=== PATIENT | male | born 1965 | race Caucasian/White ===

== ENCOUNTER 2016-06-02 11:22 | Emergency (ER) | payer BC ==
[~2016-06-02 11:22] MED LIST: ASPI81TA85 PO; VARE1TA PO
[2016-06-02] MEDS ORDERED: FAMOTIDINE 20 MG TAB As Ordered ONE (11:58)
[2016-06-02] MEDS ORDERED: diphenhydrAMINE INJ 50MG/ML VIAL (J1200) As Ordered ONE (11:58)
[2016-06-02] MEDS ORDERED: KETOROLAC 30 MG/ML VIAL (J1885) As Ordered ONE (11:59)
[2016-06-02] MEDS ORDERED: methylPREDNISolone INJ 125 MG/2 ML VIAL (J2930) As Ordered ONE (11:59)
[2016-06-02 12:21] LABS: BASO % 0.4 % (0.0-1.0); EOS # 0.2 K/mm3 (0.0-0.50); EOS % 2.8 % (0.0-3.0); LARGE UNSTAINED CELL # 0.2 K/mm3 (0.0-0.4); LYMPH # 0.9 K/mm3 (1.5-4.5); LYMPH % 12.3 % (24.0-44.0); MEAN CORPUSCULAR HEMOGLOBIN 33.3 pg (27.0-33.0); MEAN CORPUSCULAR HGB CONC 32.8 g/dl (32.0-36.5); MEAN CORPUSCULAR VOLUME 101.5 fl (80.0-96.0); MONO # 0.6 K/mm3 (0.0-0.8); MONO % 7.8 % (0.0-5.0); NEUTROPHILS # 5.4 K/mm3 (1.8-7.7); NEUTROPHILS % 73.7 % (36.0-66.0); PLATELET COUNT, AUTOMATED 290 k/mm3 (150-450); RED CELL DISTRIBUTION WIDTH 11.7 % (11.5-14.5); WHITE BLOOD COUNT 7.3 K/mm3 (4.0-10.0)
[2016-06-02 12:36] LABS: INR 0.96
[2016-06-02 12:51] LABS: ALBUMIN 3.7 GM/DL (3.2-5.2); ALBUMIN/GLOBULIN RATIO 1.09 (1.00-1.93); ALKALINE PHOSPHATASE 81 U/L (45-117); ALT/SGPT 25 U/L (12-78); ANION GAP 7 MEQ/L (8-16); AST/SGOT 17 U/L (15-37); BILIRUBIN,DIRECT 0.1 MG/DL (0.0-0.2); BILIRUBIN,TOTAL 0.3 MG/DL (0.2-1.0); BLOOD UREA NITROGEN 8 MG/DL (7-18); CALCIUM LEVEL 8.9 MG/DL (8.5-10.1); CARBON DIOXIDE LEVEL 26 MEQ/L (21-32); CHLORIDE LEVEL 108 MEQ/L (98-107); CREATININE FOR GFR 0.83 MG/DL (0.70-1.30); GLOMERULAR FILTRATION RATE > 60.0 (>56); GLUCOSE, FASTING 96 MG/DL (70-105); POTASSIUM SERUM 4.3 MEQ/L (3.5-5.1); SODIUM LEVEL 141 MEQ/L (136-145); TOTAL PROTEIN 7.1 GM/DL (6.4-8.2)
[2016-06-02 13:00] LABS: ERYTHROCYTE SEDIMENTATION RATE 10 mm/hr (0-20)
--- NOTE | 2016-06-02 13:55 | REP ---
ACUTE ABDOMINAL SERIES: 06/02/2016. Comparison: Chest x-ray 03/01/2011. Clinical history: Abdominal pain. Findings: PA chest: The lungs are well inflated and without infiltrate, effusion, atelectasis or mass. Heart, mediastinal and hilar contours are normal. Airway intact. There are degenerative changes in the spine and shoulders. Some soft tissue calcifications about the greater tuberosity on the left may reflect some calcific tendinopathy. No free air under the diaphragm. Flat upright abdomen: Mostly fluid-filled small bowel loops in the right upper quadrant and pelvis with some air in nondilated bowel loops in the left upper quadrant, a few these have air fluid levels and the pattern suggests some gastroenteritis or ileus. I see no obstruction, mass, free air or other acute finding. No abnormal soft tissue calcifications. There are degenerative changes in the lower lumbar spine and facets as well as at the hips. There is an injection granuloma overlying the left buttock and iliac wing. Impression: 1. Nonspecific gas pattern without obstruction, mass or free air. There are mostly fluid-filled small bowel loops with a few air-fluid levels but no dilatation. This suggests gastroenteritis or ileus. 2. No abnormal calcifications overlying the renal fossae or expected course of the ureters. 3. Degenerative changes lower lumbar spine and hips. 4. PA chest negative. Signed by Oscar Szymanski MD 06/02/2016 07:37 P
--- NOTE | 2016-06-02 14:08 | EDDOCDS ---
Physician Documentation [facility] Name: Kam Esteban Age: 50 yrs Sex: Male : 1965 Arrival Date: 06/02/2016 Time: 11:22 Bed TR7 Private MD: Sanjeev Chawla Disposition: 06/02/16 13:49 Discharged to Home/Self Care. Impression: Urticaria. - Condition is Stable. - Discharge Instructions: Hives. - Prescriptions for Benadryl 25 mg Oral Capsule - take 1 capsule by ORAL route every 6 hours As needed; 30 tablet. Pepcid 20 mg Oral Tablet - take 1 tablet by ORAL route every 12 hours for 10 days; 20 tablet. Ultram 50 mg Oral Tablet - take 1 tablet by ORAL route every 6 hours As needed MDD: 4 tabs; 12 tablet. Prednisone 20 mg Oral Tablet - take 2 tablet by ORAL route once daily for 5 days; 10 tablet. - Medication Reconciliation form. - Follow up: Emergency Department; When: As needed; Reason: Worsening of conditions. [facility]; When: 2 - 3 days; Reason: Wound/Symptom Recheck, Recheck today's complaints, Worsening of conditions, Continuance of care. - Problem is chronic. - Symptoms are unchanged. - Notes: Please follow up with the [facility] on Saturday and bring this paperwork with you. We would like an immediate Dermatology referral made for you. Historical: - Allergies: no known allergies; - Home Meds: 1. terbinafine HCl 250 mg oral tab 1 tab once daily 2. clotrimazole 1 % Topical lotn 2 times per day 3. triamcinolone acetonide 0.1 % Topical crea 2 times per day 4. Eucerin Topical lotn daily - PMHx: none; - PSHx: Appendectomy; left knee; - Social history: Smoking status: Patient uses tobacco products, heavy tobacco smoker. No barriers to communication noted, The patient speaks fluent Malay, Speaks appropriately for age. - Family history: Not pertinent. - : The pt / caregiver states he / she is not on anticoagulants. Home medication list is obtained from the patient. - Exposure Risk Screening:: None identified. Vital Signs: 06/02 11:23 BP 135 / 81; Pulse 71; Resp 16; Temp 95.9; Pulse Ox 99% ; Weight 79.38 kg / 175 lbs; elp Height 5 ft. 7 in. (170.18 cm); 13:54 BP 128 / 78; Pulse 72; Resp 18; Pulse Ox 98% on R/A; mk4 11:23 Body Mass Index 27.41 (79.38 kg, 170.18 cm) elp MDM: 11:34 IV Saline Lock ordered. cc10 11:34 Undress patient appropriately for examination ordered. cc10 11:35 Abdomen, Flat\E\Upright,PA Chest Ordered. EDMS 11:35 Basic Metabolic Profile Ordered. EDMS 11:35 CBC with Diff Ordered. EDMS 11:35 Lipase Ordered. EDMS 11:35 Liver Profile Ordered. EDMS 11:35 Partial Thromboplastin Time Ordered. EDMS 11:35 Prothrombin Time Profile\E\INR Ordered. EDMS 11:35 UA Ordered. EDMS 11:35 ESR Ordered. EDMS 11:36 CRP Ordered. EDMS 11:36 NOTHING BY MOUTH+DIET ordered. EDMS 11:36 -Blood Culture (Adults Only), peripheral from different site, or from device/port/PICC cc10 etc. if present ordered. 11:36 -Blood Culture Ordered. EDMS 11:37 Ammonia (Little Green Tube on Ice, Not Pea Green) Ordered. EDMS 11:41 -Blood Culture (Adults Only), peripheral from different site, or from device/port/PICC jml1 etc. if present complete. 11:42 BLOOD CULTURES Ordered. EDMS 11:48 Financial registration complete. mm15 11:53 Undo -Financial registration. mm15 11:55 Solu-MEDROL 125 mg IVP once ordered. cc10 11:55 diphenhydrAMINE 25 mg IVP once ordered. cc10 11:55 Famotidine 20 mg PO once ordered. cc10 11:55 ketorolac 30 mg IVP once ordered. cc10 12:36 Financial registration complete. mm15 12:44 [facility] Payment Agreement was scanned into [employer] and attached to record. mm15 13:13 Basic Metabolic Profile Reviewed. cc10 13:13 CBC with Diff Reviewed. cc10 13:13 CRP Reviewed. cc10 13:13 Lipase Reviewed. cc10 13:13 Liver Profile Reviewed. cc10 13:13 Partial Thromboplastin Time Reviewed. cc10 13:13 Prothrombin Time Profile\E\INR Reviewed. cc10 13:13 UA Reviewed. cc10 13:13 ESR Reviewed. cc10 13:13 Ammonia (Little Green Tube on Ice, Not Pea Green) Reviewed. cc10 Administered Medications: 12:08 Drug: ketorolac 30 mg [ketorolac 30 mg/mL (1 mL) injection solution (1 mL)] Route: IVP; dls Site: right antecubital; 12:09 Drug: Solu-MEDROL 125 mg [Solu-Medrol 500 mg intravenous solution (125 mg)] Route: IVP; dls Site: right antecubital; 12:09 Drug: diphenhydrAMINE 25 mg [diphenhydramine 50 mg/mL injection solution (0.5 mL)] dls Route: IVP; Site: right antecubital; 12:09 Drug: Famotidine 20 mg [famotidine 20 mg tablet (1 tabs)] Route: PO; dls Signatures: Dispatcher [employer] Tyler Hendrickson RN RN mlb1 Maciel Hong jml1 Sarahi Estrada mm15 Aleksandra Travis RN RN mk4 Javi Lopez, PA-C PA-C cc10 Rosmery Delvalle RN dls The chart was reviewed and I authenticate all verbal orders and agree with the evaluation and treatment provided.Attachments: 12:44 [facility] Payment Agreement mm15 MTDD
--- NOTE | 2016-06-02 14:08 | EDDOCDS ---
Nurse's Notes [facility] Name: Kam Esteban Age: 50 yrs Sex: Male : 1965 Arrival Date: 06/02/2016 Time: 11:22 Bed TR7 Private MD: Sanjeev Chawla Diagnosis: Urticaria Presentation: 06/02 11:24 Presenting complaint: Patient states: Right side abdominal pain radiating to back began mlb1 six months ago, bilateral hand and foot redness and numbness began two months ago. Adult Sepsis Screening: The patient does not have new or worsening altered mentation. Patient's respiratory rate is less than 22. Systolic blood pressure is greater than 100. Patient has a qSOFA score of 0- Negative Sepsis Screen. Suicide/Homicide risk assessment- the patient denies having any suicidal and/or homicidal ideations and does not present with any other emotional, behavioral or mental health complaints. Status: Patient is not a rn support services or dependent. Transition of care: patient was not received from another setting of care. 11:24 Acuity: REBA Level 3 mlb1 11:24 Method Of Arrival: Walkin/Carried/Asstd mlb1 Triage Assessment: 11:28 General: Appears in no apparent distress, Behavior is appropriate for age, cooperative. mlb1 Pain: Location: right upper quadrant and right lower quadrant Pain currently is 5 out of 10 on a pain scale. Pain radiates to right flank and right low back. Pt Declines HIV testing. Musculoskeletal: Reports tingling and rash to hands and feet. Historical: - Allergies: no known allergies; - Home Meds: 1. terbinafine HCl 250 mg oral tab 1 tab once daily 2. clotrimazole 1 % Topical lotn 2 times per day 3. triamcinolone acetonide 0.1 % Topical crea 2 times per day 4. Eucerin Topical lotn daily - PMHx: none; - PSHx: Appendectomy; left knee; - Social history: Smoking status: Patient uses tobacco products, heavy tobacco smoker. No barriers to communication noted, The patient speaks fluent Albanian, Speaks appropriately for age. - Family history: Not pertinent. - : The pt / caregiver states he / she is not on anticoagulants. Home medication list is obtained from the patient. - Exposure Risk Screening:: None identified. Screenin:06 Screening information is obtained from the patient. Fall risk: No risks identified. mk4 Assistance ADL's: requires no assistance with activities of daily living. Abuse/DV Screen: The patient / caregiver reports he/she is: not in a situation that causes fear, pain or injury. Nutritional screening: No deficits noted. Advance Directives: Currently, there is no health care proxy. There is no active DNR order. There is no living will. There is no Power of [employer]. Advance directive information has not previously been placed in an [facility] medical record. Further advance directive information is declined. home support is adequate. Assessment: 12:01 General: Appears uncomfortable. Pain: Location: right lower quadrant and right upper mk4 quadrant. Neurological: Level of Consciousness is awake, alert. Respiratory: Airway is patent Respiratory effort is even, unlabored, Respiratory pattern is regular. Derm: Rash noted that is over entire body. 13:00 General: Appears in no apparent distress. Derm: Rash noted that is over entire body mk4 unchanged however itching has improved. 13:54 General: Appears uncomfortable. Pain: Location: all over his body. Neurological: Level mk4 of Consciousness is awake, alert. Respiratory: Airway is patent Respiratory effort is even, unlabored, Respiratory pattern is regular. Derm: Skin is intact, Rash noted that is continues to have rash over entire body , pt and so irritated with staff that we do not have an answer to why he has the rash, pt requesting to have a cream for his skin pt was prescribed steroid cream but has not used it because it "doesn't work". Vital Signs: 11:23 BP 135 / 81; Pulse 71; Resp 16; Temp 95.9; Pulse Ox 99% ; Weight 79.38 kg; Height 5 ft. elp 7 in. (170.18 cm); 13:54 BP 128 / 78; Pulse 72; Resp 18; Pulse Ox 98% on R/A; mk4 11:23 Body Mass Index 27.41 (79.38 kg, 170.18 cm) [facility] Vitals: 11:23 Log In Time: June 02, 2016 at 11:21. [facility] ED Course: 11:23 Patient visited by Asya Ballard PCA. elp 11:23 Sanjeev Chawla DO is Private Physician. elp 11:23 Patient moved to Waiting elp 11:23 Patient moved to Pre RCE elp 11:24 Patient visited by Asya Ballard PCA. elp 11:24 Patient visited by Tyler Landa RN. mlb1 11:26 Triage Initiated mlb1 11:28 Patient visited by Tyler Landa, KOREY. mlb1 11:28 Patient moved to Triage 1 mlb1 11:29 Javi Lopez [facility]-C [facility] cc10 11:29 Yamini Ocampo MD is Attending Physician. cc10 11:29 Patient visited by Javi Lopez PA-C. cc10 11:29 Patient visited by Javi Lopez PA-C. cc10 11:36 Patient moved to I1 / M1 ck1 11:38 UA Sent. ck1 12:00 BLOOD CULTURES Sent. mk4 12:00 Ammonia (Little Green Tube on Ice, Not Pea Green) Sent. mk4 12:00 Basic Metabolic Profile Sent. mk4 12:00 CBC with Diff Sent. mk4 12:00 Lipase Sent. mk4 12:00 Liver Profile Sent. mk4 12:00 Partial Thromboplastin Time Sent. mk4 12:00 Prothrombin Time Profile\\E\\INR Sent. mk4 12:00 ESR Sent. mk4 12:00 CRP Sent. mk4 12:00 Inserted saline lock: 20 gauge in right antecubital area and blood collected. No mk4 procedures done that require assistance. 12:18 Patient visited by Aleksandra Travis RN. mk4 12:44 [facility] Payment Agreement was scanned into [employer] and attached to record. mm15 13:26 Patient visited by Rosmery Delvalle RN. dls 13:48 [facility] is Referral Physician. cc10 14:01 Patient moved to TR1 jml1 14:06 The patient / caregiver is instructed regarding the plan of care and ED course. mk4 14:07 Patient moved to PR1 / 25 rs3 14:07 Patient moved to TR7 mk4 Administered Medications: 12:08 Drug: ketorolac 30 mg [ketorolac 30 mg/mL (1 mL) injection solution (1 mL)] Route: IVP; dls Site: right antecubital; 12:09 Drug: Solu-MEDROL 125 mg [Solu-Medrol 500 mg intravenous solution (125 mg)] Route: IVP; dls Site: right antecubital; 12:09 Drug: diphenhydrAMINE 25 mg [diphenhydramine 50 mg/mL injection solution (0.5 mL)] dls Route: IVP; Site: right antecubital; 12:09 Drug: Famotidine 20 mg [famotidine 20 mg tablet (1 tabs)] Route: PO; dls Order Results: Lab Order: Basic Metabolic Profile; SPEC'M 06/02/16 11:57 Test: GLUCOSE, FASTING; Value: 96; Range: 70-105; Units: MG/DL; Status: F Test: BLOOD UREA NITROGEN; Value: 8; Range: 7-18; Units: MG/DL; Status: F Test: CREATININE FOR GFR; Value: 0.83; Range: 0.70-1.30; Units: MG/DL; Status: F Test: GLOMERULAR FILTRATION RATE; Value: > 60.0; Range: >56; Status: F Test: SODIUM LEVEL; Value: 141; Range: 136-145; Units: MEQ/L; Status: F Test: POTASSIUM SERUM; Value: 4.3; Range: 3.5-5.1; Units: MEQ/L; Status: F Test: CHLORIDE LEVEL; Value: 108; Range: 98-107; Abnormal: Above high normal; Units: MEQ/L; Status: F Test: CARBON DIOXIDE LEVEL; Value: 26; Range: 21-32; Units: MEQ/L; Status: F Test: ANION GAP; Value: 7; Range: 8-16; Abnormal: Below low normal; Units: MEQ/L; Status: F Test: CALCIUM LEVEL; Value: 8.9; Range: 8.5-10.1; Units: MG/DL; Status: F Test Note: ; Units are mL/min/1.73 m2 Chronic Kidney Disease Staging per NKF: Stage I & II GFR >=60 Normal to Mildly Decreased Stage III GFR 30-59 Moderately Decreased Stage IV GFR 15-29 Severely Decreased Stage V GFR <15 Very Little GFR Left ESRD GFR <15 on EVP STRATEGY Lab Order: CBC with Diff; SPEC'M 06/02/16 11:57 Test: WHITE BLOOD COUNT; Value: 7.3; Range: 4.0-10.0; Units: K/mm3; Status: F Test: RED BLOOD COUNT; Value: 4.58; Range: 4.30-6.10; Units: M/mm3; Status: F Test: HEMOGLOBIN; Value: 15.3; Range: 14.0-18.0; Units: g/dl; Status: F Test: HEMATOCRIT; Value: 46.5; Range: 42.0-52.0; Units: %; Status: F Test: MEAN CORPUSCULAR VOLUME; Value: 101.5; Range: 80.0-96.0; Abnormal: Above high normal; Units: fl; Status: F Test: MEAN CORPUSCULAR HEMOGLOBIN; Value: 33.3; Range: 27.0-33.0; Abnormal: Above high normal; Units: pg; Status: F Test: MEAN CORPUSCULAR HGB CONC; Value: 32.8; Range: 32.0-36.5; Units: g/dl; Status: F Test: RED CELL DISTRIBUTION WIDTH; Value: 11.7; Range: 11.5-14.5; Units: %; Status: F Test: PLATELET COUNT, AUTOMATED; Value: 290; Range: 150-450; Units: k/mm3; Status: F Test: NEUTROPHILS %; Value: 73.7; Range: 36.0-66.0; Abnormal: Above high normal; Units: %; Status: F Test: LYMPH %; Value: 12.3; Range: 24.0-44.0; Abnormal: Below low normal; Units: %; Status: F Test: MONO %; Value: 7.8; Range: 0.0-5.0; Abnormal: Above high normal; Units: %; Status: F Test: EOS %; Value: 2.8; Range: 0.0-3.0; Units: %; Status: F Test: BASO %; Value: 0.4; Range: 0.0-1.0; Units: %; Status: F Test: LARGE UNSTAINED CELL %; Value: 3.0; Range: 0.0-4.0; Units: %; Status: F Test: NEUTROPHILS #; Value: 5.4; Range: 1.8-7.7; Units: K/mm3; Status: F Test: LYMPH #; Value: 0.9; Range: 1.5-4.5; Abnormal: Below low normal; Units: K/mm3; Status: F Test: MONO #; Value: 0.6; Range: 0.0-0.8; Units: K/mm3; Status: F Test: EOS #; Value: 0.2; Range: 0.0-0.50; Units: K/mm3; Status: F Test: BASO #; Value: 0.0; Range: 0.0-0.2; Units: K/mm3; Status: F Test: LARGE UNSTAINED CELL #; Value: 0.2; Range: 0.0-0.4; Units: K/mm3; Status: F Lab Order: Lipase; [facility]06/02/16 11:57 Test: LIPASE; Value: 193; Range: 73-393; Units: U/L; Status: F Lab Order: Liver Profile; [facility]06/02/16 11:57 Test: AST/SGOT; Value: 17; Range: 15-37; Units: U/L; Status: F Test: ALT/SGPT; Value: 25; Range: 12-78; Units: U/L; Status: F Test: ALKALINE PHOSPHATASE; Value: 81; Range: 45-117; Units: U/L; Status: F Test: BILIRUBIN,TOTAL; Value: 0.3; Range: 0.2-1.0; Units: MG/DL; Status: F Test: BILIRUBIN,DIRECT; Value: 0.1; Range: 0.0-0.2; Units: MG/DL; Status: F Test: TOTAL PROTEIN; Value: 7.1; Range: 6.4-8.2; Units: GM/DL; Status: F Test: ALBUMIN; Value: 3.7; Range: 3.2-5.2; Units: GM/DL; Status: F Test: ALBUMIN/GLOBULIN RATIO; Value: 1.09; Range: 1.00-1.93; Status: F Lab Order: Partial Thromboplastin Time; [facility]06/02/16 11:57 Test: PARTIAL THROMBOPLASTIN TIME; Value: 28.7; Range: 26.6-37.1; Units: SECONDS; Status: F Lab Order: Prothrombin Time Profile\\E\\INR; 06/02/16 11:57 Test: PROTHROMBIN TIME; Value: 12.9; Range: 12.3-14.5; Units: SECONDS; Status: F Test: INR; Value: 0.96; Status: F Test Note: ; THERAPUTIC HUMAN INR VALUES INDICATIONS NORMAL RANGES PROPHYLAXIS/TREATMENT OF: VENOUS THROMBOSIS 2.0-3.0 PULMONARY EMBOLISM 2.0-3.0 PREVENTION OF SYSTEMIC EMBOLISM FROM: TISSUE HEART VALVES 2.0-3.0 ACUTE MYOCARDIAL INFARCTION 2.0-3.0 VALVULAR HEART DISEASE 2.0-3.0 ATRIAL FIBRILLATION 2.0-3.0 MECHANICAL VALVES(HIGH RISK) 2.5-3.5 RECURRENT MYOCARDIAL INFARCTION 2.5-3.5 Lab Order: UA; SPEC'M 06/02/16 11:37 Test: APPEARANCE, URINE; Value: CLEAR; Range: CLEAR; Status: F Test: COLOR, URINE; Value: YELLOW; Range: YELLOW; Status: F Test: PH,URINE; Value: 5.0; Range: 5.0-9.0; Units: UNITS; Status: F Test: SPECIFIC GRAVITY URINE AUTO; Value: 1.009; Range: 1.002-1.035; Status: F Test: PROTEIN, URINE AUTO; Value: NEGATIVE; Range: NEGATIVE; Units: mg/dL; Status: F Test: GLUCOSE, URINE (UA) AUTO; Value: NEGATIVE; Range: NEGATIVE; Units: mg/dL; Status: F Test: KETONE, URINE AUTO; Value: NEGATIVE; Range: NEGATIVE; Units: mg/dL; Status: F Test: UROBILINOGEN, URINE AUTO; Value: 0.2; Range: 0.0-2.0; Units: mg/dL; Status: F Test: BILIRUBIN, URINE AUTO; Value: NEGATIVE; Range: NEGATIVE; Status: F Test: NITRITE, URINE AUTO; Value: NEGATIVE; Range: NEGATIVE; Status: F Test: LEUKOCYTE ESTERASE, URINE AUTO; Value: NEGATIVE; Range: NEGATIVE; Status: F Test: BLOOD, URINE BLOOD; Value: NEGATIVE; Range: NEGATIVE; Status: F Test: WBC, URINE AUTO; Value: 0; Range: 0-3; Units: /HPF; Status: F Test: RBC, URINE AUTO; Value: 1; Range: 0-3; Units: /HPF; Status: F Test: BACTERIA, URINE AUTO; Value: NEGATIVE; Range: NEGATIVE; Status: F Test: SQUAMOUS EPITHELIAL CELL UR AU; Value: 0; Range: 0-6; Units: /HPF; Status: F Test: MUCUS, URINE; Value: SMALL; Range: NEGATIVE; Status: F Test: HYALINE CAST, URINE AUTO; Value: 0; Range: 0-1; Units: /LPF; Status: F Lab Order: ESR; SPEC'M 06/02/16 11:57 Test: ERYTHROCYTE SEDIMENTATION RATE; Value: 10; Range: 0-20; Units: mm/hr; Status: F Lab Order: CRP; SPEC'M 06/02/16 11:57 Test: C REACTIVE PROTEIN QUANTITATIV; Value: 0.74; Range: 0.00-0.30; Abnormal: Above high normal; Units: MG/DL; Status: F Lab Order: Ammonia (Little Green Tube on Ice, Not Pea Green); SPEC'M 06/02/16 11:57 Test: AMMONIA; Value: 21; Range: <32; Units: uMOL/L; Status: F Outcome: 12:00 Discharge Assessment: Patient awake, alert and oriented x 3. No cognitive and/or mk4 functional deficits noted. Patient verbalized understanding of disposition instructions. Patient awake and alert. awake. Discharge Assessment: patient administered narcotics - no. The following High Risk Discharge criteria are identified: None. Condition: good Condition: stable. No special radiology studies were completed. Property sent home with patient. 13:49 Discharge ordered by Provider. cc10 14:08 Patient left the ED. mk4 Signatures: Rosmery Delvalle, RN RN dls Tyler Landa RN RN mlb1 Daisy AmayaRN RN ck1 Carlee SandersRN RN rs3 Maciel Hong jml1 Sarahi Estrada mm15 Asya Ballard, VENEER DRIER [place] D[place]ER [place] Aleksandra Travis RN RN mk4 Javi Lopez, PA-C PA-C cc10 MTDD
--- NOTE | 2016-06-04 15:08 | EDDOCDS ---
Physician Documentation [facility] Name: Kam Esteban Age: 50 yrs Sex: Male : 1965 Arrival Date: 06/02/2016 Time: 11:22 Bed TR7 Private MD: Sanjeev Chawla Disposition: 06/02/16 13:49 Discharged to Home/Self Care. Impression: Urticaria. - Condition is Stable. - Discharge Instructions: Hives. - Prescriptions for Benadryl 25 mg Oral Capsule - take 1 capsule by ORAL route every 6 hours As needed; 30 tablet. Pepcid 20 mg Oral Tablet - take 1 tablet by ORAL route every 12 hours for 10 days; 20 tablet. Ultram 50 mg Oral Tablet - take 1 tablet by ORAL route every 6 hours As needed MDD: 4 tabs; 12 tablet. Prednisone 20 mg Oral Tablet - take 2 tablet by ORAL route once daily for 5 days; 10 tablet. - Medication Reconciliation form. - Follow up: Emergency Department; When: As needed; Reason: Worsening of conditions. [facility]; When: 2 - 3 days; Reason: Wound/Symptom Recheck, Recheck today's complaints, Worsening of conditions, Continuance of care. - Problem is chronic. - Symptoms are unchanged. - Notes: Please follow up with the [facility] on Saturday and bring this paperwork with you. We would like an immediate Dermatology referral made for you. Historical: - Allergies: no known allergies; - Home Meds: 1. terbinafine HCl 250 mg oral tab 1 tab once daily 2. clotrimazole 1 % Topical lotn 2 times per day 3. triamcinolone acetonide 0.1 % Topical crea 2 times per day 4. Eucerin Topical lotn daily - PMHx: none; - PSHx: Appendectomy; left knee; - Social history: Smoking status: Patient uses tobacco products, heavy tobacco smoker. No barriers to communication noted, The patient speaks fluent Turkmen, Speaks appropriately for age. - Family history: Not pertinent. - : The pt / caregiver states he / she is not on anticoagulants. Home medication list is obtained from the patient. - Exposure Risk Screening:: None identified. Vital Signs: 06/02 11:23 BP 135 / 81; Pulse 71; Resp 16; Temp 95.9; Pulse Ox 99% ; Weight 79.38 kg / 175 lbs; elp Height 5 ft. 7 in. (170.18 cm); 13:54 BP 128 / 78; Pulse 72; Resp 18; Pulse Ox 98% on R/A; mk4 11:23 Body Mass Index 27.41 (79.38 kg, 170.18 cm) elp MDM: 11:34 IV Saline Lock ordered. cc10 11:34 Undress patient appropriately for examination ordered. cc10 11:35 Abdomen, Flat\E\Upright,PA Chest Ordered. EDMS 11:35 Basic Metabolic Profile Ordered. EDMS 11:35 CBC with Diff Ordered. EDMS 11:35 Lipase Ordered. EDMS 11:35 Liver Profile Ordered. EDMS 11:35 Partial Thromboplastin Time Ordered. EDMS 11:35 Prothrombin Time Profile\E\INR Ordered. EDMS 11:35 UA Ordered. EDMS 11:35 ESR Ordered. EDMS 11:36 CRP Ordered. EDMS 11:36 NOTHING BY MOUTH+DIET ordered. EDMS 11:36 -Blood Culture (Adults Only), peripheral from different site, or from device/port/PICC cc10 etc. if present ordered. 11:36 -Blood Culture Ordered. EDMS 11:37 Ammonia (Little Green Tube on Ice, Not Pea Green) Ordered. EDMS 11:41 -Blood Culture (Adults Only), peripheral from different site, or from device/port/PICC jml1 etc. if present complete. 11:42 BLOOD CULTURES Ordered. EDMS 11:48 Financial registration complete. mm15 11:53 Undo -Financial registration. mm15 11:55 Solu-MEDROL 125 mg IVP once ordered. cc10 11:55 diphenhydrAMINE 25 mg IVP once ordered. cc10 11:55 Famotidine 20 mg PO once ordered. cc10 11:55 ketorolac 30 mg IVP once ordered. cc10 12:36 Financial registration complete. mm15 12:44 [facility] Payment Agreement was scanned into [employer] and attached to record. mm15 13:13 Basic Metabolic Profile Reviewed. cc10 13:13 CBC with Diff Reviewed. cc10 13:13 CRP Reviewed. cc10 13:13 Lipase Reviewed. cc10 13:13 Liver Profile Reviewed. cc10 13:13 Partial Thromboplastin Time Reviewed. cc10 13:13 Prothrombin Time Profile\E\INR Reviewed. cc10 13:13 UA Reviewed. cc10 13:13 ESR Reviewed. cc10 13:13 Ammonia (Little Green Tube on Ice, Not Pea Green) Reviewed. cc10 17:51 T-Sheet-- Draft Copy was scanned into [employer] and attached to record. klr Administered Medications: 12:08 Drug: ketorolac 30 mg [ketorolac 30 mg/mL (1 mL) injection solution (1 mL)] Route: IVP; dls Site: right antecubital; 12:09 Drug: Solu-MEDROL 125 mg [Solu-Medrol 500 mg intravenous solution (125 mg)] Route: IVP; dls Site: right antecubital; 12:09 Drug: diphenhydrAMINE 25 mg [diphenhydramine 50 mg/mL injection solution (0.5 mL)] dls Route: IVP; Site: right antecubital; 12:09 Drug: Famotidine 20 mg [famotidine 20 mg tablet (1 tabs)] Route: PO; dls Signatures: Dis[facility] Tyler Landa RN RN mlb1 Maciel Hong jml1 Sarahi Estrada mm15 Aleksandra Travis RN RN mk4 Javi Lopez, PAAbelino PA-Chance cc10 Kerline Pineda Debra RN dls The chart was reviewed and I authenticate all verbal orders and agree with the evaluation and treatment provided.Attachments: 12:44 [facility] Payment Agreement mm15 17:51 T-Sheet-- Draft Copy klr Chart Complete MTDD
--- NOTE | 2016-06-04 15:08 | EDDOCDS ---
Physician Documentation [facility] Name: Kam Esteban Age: 50 yrs Sex: Male : 1965 Arrival Date: 06/02/2016 Time: 11:22 Bed TR7 Private MD: Sanjeev Chawla Disposition: 06/02/16 13:49 Discharged to Home/Self Care. Impression: Urticaria. - Condition is Stable. - Discharge Instructions: Hives. - Prescriptions for Benadryl 25 mg Oral Capsule - take 1 capsule by ORAL route every 6 hours As needed; 30 tablet. Pepcid 20 mg Oral Tablet - take 1 tablet by ORAL route every 12 hours for 10 days; 20 tablet. Ultram 50 mg Oral Tablet - take 1 tablet by ORAL route every 6 hours As needed MDD: 4 tabs; 12 tablet. Prednisone 20 mg Oral Tablet - take 2 tablet by ORAL route once daily for 5 days; 10 tablet. - Medication Reconciliation form. - Follow up: Emergency Department; When: As needed; Reason: Worsening of conditions. [facility]; When: 2 - 3 days; Reason: Wound/Symptom Recheck, Recheck today's complaints, Worsening of conditions, Continuance of care. - Problem is chronic. - Symptoms are unchanged. - Notes: Please follow up with the [facility] on Saturday and bring this paperwork with you. We would like an immediate Dermatology referral made for you. Historical: - Allergies: no known allergies; - Home Meds: 1. terbinafine HCl 250 mg oral tab 1 tab once daily 2. clotrimazole 1 % Topical lotn 2 times per day 3. triamcinolone acetonide 0.1 % Topical crea 2 times per day 4. Eucerin Topical lotn daily - PMHx: none; - PSHx: Appendectomy; left knee; - Social history: Smoking status: Patient uses tobacco products, heavy tobacco smoker. No barriers to communication noted, The patient speaks fluent Italian, Speaks appropriately for age. - Family history: Not pertinent. - : The pt / caregiver states he / she is not on anticoagulants. Home medication list is obtained from the patient. - Exposure Risk Screening:: None identified. Vital Signs: 06/02 11:23 BP 135 / 81; Pulse 71; Resp 16; Temp 95.9; Pulse Ox 99% ; Weight 79.38 kg / 175 lbs; elp Height 5 ft. 7 in. (170.18 cm); 13:54 BP 128 / 78; Pulse 72; Resp 18; Pulse Ox 98% on R/A; mk4 11:23 Body Mass Index 27.41 (79.38 kg, 170.18 cm) elp MDM: 11:34 IV Saline Lock ordered. cc10 11:34 Undress patient appropriately for examination ordered. cc10 11:35 Abdomen, Flat\E\Upright,PA Chest Ordered. EDMS 11:35 Basic Metabolic Profile Ordered. EDMS 11:35 CBC with Diff Ordered. EDMS 11:35 Lipase Ordered. EDMS 11:35 Liver Profile Ordered. EDMS 11:35 Partial Thromboplastin Time Ordered. EDMS 11:35 Prothrombin Time Profile\E\INR Ordered. EDMS 11:35 UA Ordered. EDMS 11:35 ESR Ordered. EDMS 11:36 CRP Ordered. EDMS 11:36 NOTHING BY MOUTH+DIET ordered. EDMS 11:36 -Blood Culture (Adults Only), peripheral from different site, or from device/port/PICC cc10 etc. if present ordered. 11:36 -Blood Culture Ordered. EDMS 11:37 Ammonia (Little Green Tube on Ice, Not Pea Green) Ordered. EDMS 11:41 -Blood Culture (Adults Only), peripheral from different site, or from device/port/PICC jml1 etc. if present complete. 11:42 BLOOD CULTURES Ordered. EDMS 11:48 Financial registration complete. mm15 11:53 Undo -Financial registration. mm15 11:55 Solu-MEDROL 125 mg IVP once ordered. cc10 11:55 diphenhydrAMINE 25 mg IVP once ordered. cc10 11:55 Famotidine 20 mg PO once ordered. cc10 11:55 ketorolac 30 mg IVP once ordered. cc10 12:36 Financial registration complete. mm15 12:44 [facility] Payment Agreement was scanned into [employer] and attached to record. mm15 13:13 Basic Metabolic Profile Reviewed. cc10 13:13 CBC with Diff Reviewed. cc10 13:13 CRP Reviewed. cc10 13:13 Lipase Reviewed. cc10 13:13 Liver Profile Reviewed. cc10 13:13 Partial Thromboplastin Time Reviewed. cc10 13:13 Prothrombin Time Profile\E\INR Reviewed. cc10 13:13 UA Reviewed. cc10 13:13 ESR Reviewed. cc10 13:13 Ammonia (Little Green Tube on Ice, Not Pea Green) Reviewed. cc10 17:51 T-Sheet-- Draft Copy was scanned into [employer] and attached to record. klr Administered Medications: 12:08 Drug: ketorolac 30 mg [ketorolac 30 mg/mL (1 mL) injection solution (1 mL)] Route: IVP; dls Site: right antecubital; 12:09 Drug: Solu-MEDROL 125 mg [Solu-Medrol 500 mg intravenous solution (125 mg)] Route: IVP; dls Site: right antecubital; 12:09 Drug: diphenhydrAMINE 25 mg [diphenhydramine 50 mg/mL injection solution (0.5 mL)] dls Route: IVP; Site: right antecubital; 12:09 Drug: Famotidine 20 mg [famotidine 20 mg tablet (1 tabs)] Route: PO; dls Signatures: Dispatcher [facility] Tyler Landa RN RN mlb1 Maciel Hong jml1 Sarahi Estrada mm15 Aleksandra Travis RN RN mk4 Javi Lopez, PAAbelino PA-Chance cc10 Kerline Pineda Debra RN dls The chart was reviewed and I authenticate all verbal orders and agree with the evaluation and treatment provided.Attachments: 12:44 [facility] Payment Agreement mm15 17:51 T-Sheet-- Draft Copy klr Chart Complete MTDD
--- NOTE | 2016-06-04 15:09 | EDDOCDS ---
Nurse's Notes [facility] Name: Kam Esteban Age: 50 yrs Sex: Male : 1965 Arrival Date: 06/02/2016 Time: 11:22 Bed TR7 Private MD: Sanjeev Chawla Diagnosis: Urticaria Presentation: 06/02 11:24 Presenting complaint: Patient states: Right side abdominal pain radiating to back began mlb1 six months ago, bilateral hand and foot redness and numbness began two months ago. Adult Sepsis Screening: The patient does not have new or worsening altered mentation. Patient's respiratory rate is less than 22. Systolic blood pressure is greater than 100. Patient has a qSOFA score of 0- Negative Sepsis Screen. Suicide/Homicide risk assessment- the patient denies having any suicidal and/or homicidal ideations and does not present with any other emotional, behavioral or mental health complaints. 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 Transition of care: patient was not received from another setting of care. 11:24 Acuity: REBA Level 3 mlb1 11:24 Method Of Arrival: Walkin/Carried/Asstd mlb1 Triage Assessment: 11:28 General: Appears in no apparent distress, Behavior is appropriate for age, cooperative. mlb1 Pain: Location: right upper quadrant and right lower quadrant Pain currently is 5 out of 10 on a pain scale. Pain radiates to right flank and right low back. Pt Declines HIV testing. Musculoskeletal: Reports tingling and rash to hands and feet. Historical: - Allergies: no known allergies; - Home Meds: 1. terbinafine HCl 250 mg oral tab 1 tab once daily 2. clotrimazole 1 % Topical lotn 2 times per day 3. triamcinolone acetonide 0.1 % Topical crea 2 times per day 4. Eucerin Topical lotn daily - PMHx: none; - PSHx: Appendectomy; left knee; - Social history: Smoking status: Patient uses tobacco products, heavy tobacco smoker. No barriers to communication noted, The patient speaks fluent Macedonian, Speaks appropriately for age. - Family history: Not pertinent. - : The pt / caregiver states he / she is not on anticoagulants. Home medication list is obtained from the patient. - Exposure Risk Screening:: None identified. Screenin:06 Screening information is obtained from the patient. Fall risk: No risks identified. mk4 Assistance ADL's: requires no assistance with activities of daily living. Abuse/DV Screen: The patient / caregiver reports he/she is: not in a situation that causes fear, pain or injury. Nutritional screening: No deficits noted. Advance Directives: Currently, there is no health care proxy. There is no active DNR order. There is no living will. There is no Power of Hopper Attendant. Advance directive information has not previously been placed in an [facility] medical record. Further advance directive information is declined. home support is adequate. Assessment: 12:01 General: Appears uncomfortable. Pain: Location: right lower quadrant and right upper mk4 quadrant. Neurological: Level of Consciousness is awake, alert. Respiratory: Airway is patent Respiratory effort is even, unlabored, Respiratory pattern is regular. Derm: Rash noted that is over entire body. 13:00 General: Appears in no apparent distress. Derm: Rash noted that is over entire body mk4 unchanged however itching has improved. 13:54 General: Appears uncomfortable. Pain: Location: all over his body. Neurological: Level mk4 of Consciousness is awake, alert. Respiratory: Airway is patent Respiratory effort is even, unlabored, Respiratory pattern is regular. Derm: Skin is intact, Rash noted that is continues to have rash over entire body , pt and so irritated with staff that we do not have an answer to why he has the rash, pt requesting to have a cream for his skin pt was prescribed steroid cream but has not used it because it "doesn't work". Vital Signs: 11:23 BP 135 / 81; Pulse 71; Resp 16; Temp 95.9; Pulse Ox 99% ; Weight 79.38 kg; Height 5 ft. elp 7 in. (170.18 cm); 13:54 BP 128 / 78; Pulse 72; Resp 18; Pulse Ox 98% on R/A; mk4 11:23 Body Mass Index 27.41 (79.38 kg, 170.18 cm) [facility] Vitals: 11:23 Log In Time: June 02, 2016 at 11:[address]. [facility] ED Course: 11:23 Patient visited by Asya Ballard PCA. elp 11:23 Sanjeev Chawla DO is Private Physician. elp 11:23 Patient moved to Waiting elp 11:23 Patient moved to Pre RCE elp 11:24 Patient visited by Asya Ballard PCA. elp 11:24 Patient visited by Tyler Landa, KOREY. mlb1 11:26 Triage Initiated mlb1 11:28 Patient visited by Tyler Landa, KOREY. mlb1 11:28 Patient moved to Triage 1 mlb1 11:29 [facility] cc[facility] 11:29 Yamini Ocampo MD is Attending Physician. cc10 11:29 Patient visited by Javi Lopez PA-C. cc10 11:29 Patient visited by Javi Lopez PA-C. cc10 11:36 Patient moved to I1 / M1 ck1 11:38 UA Sent. ck1 12:00 BLOOD CULTURES Sent. mk4 12:00 Ammonia (Little [place] Tube on Ice, Not Pea Green) Sent. mk4 12:00 Basic Metabolic Profile Sent. mk4 12:00 CBC with Diff Sent. mk4 12:00 Lipase Sent. mk4 12:00 Liver Profile Sent. mk4 12:00 Partial Thromboplastin Time Sent. mk4 12:00 Prothrombin Time Profile\\E\\INR Sent. mk4 12:00 ESR Sent. mk4 12:00 CRP Sent. mk4 12:00 Inserted saline lock: 20 gauge in right antecubital area and blood collected. No mk4 procedures done that require assistance. 12:18 Patient visited by Aleksandra Travis RN. mk4 12:44 [facility] Payment Agreement was scanned into [employer] and attached to record. mm15 13:26 Patient visited by Rosmery Delvalle RN. dls 13:48 [facility] is Referral Physician. cc10 14:01 Patient moved to TR1 jml1 14:06 The patient / caregiver is instructed regarding the plan of care and ED course. mk4 14:07 Patient moved to PR1 / 25 rs3 14:07 Patient moved to TR7 mk4 14:15 Abdomen, Flat\\E\\Upright,PA Chest Returned. EDMS 17:51 T-Sheet-- Draft Copy was scanned into [employer] and attached to record. klr Administered Medications: 12:08 Drug: ketorolac 30 mg [ketorolac 30 mg/mL (1 mL) injection solution (1 mL)] Route: IVP; dls Site: right antecubital; 12:09 Drug: Solu-MEDROL 125 mg [Solu-Medrol 500 mg intravenous solution (125 mg)] Route: IVP; dls Site: right antecubital; 12:09 Drug: diphenhydrAMINE 25 mg [diphenhydramine 50 mg/mL injection solution (0.5 mL)] dls Route: IVP; Site: right antecubital; 12:09 Drug: Famotidine 20 mg [famotidine 20 mg tablet (1 tabs)] Route: PO; dls Order Results: Lab Order: Basic Metabolic Profile; SPEC'M 06/02/16 11:57 Test: GLUCOSE, FASTING; Value: 96; Range: 70-105; Units: MG/DL; Status: F Test: BLOOD UREA NITROGEN; Value: 8; Range: 7-18; Units: MG/DL; Status: F Test: CREATININE FOR GFR; Value: 0.83; Range: 0.70-1.30; Units: MG/DL; Status: F Test: GLOMERULAR FILTRATION RATE; Value: > 60.0; Range: >56; Status: F Test: SODIUM LEVEL; Value: 141; Range: 136-145; Units: MEQ/L; Status: F Test: POTASSIUM SERUM; Value: 4.3; Range: 3.5-5.1; Units: MEQ/L; Status: F Test: CHLORIDE LEVEL; Value: 108; Range: 98-107; Abnormal: Above high normal; Units: MEQ/L; Status: F Test: CARBON DIOXIDE LEVEL; Value: 26; Range: 21-32; Units: MEQ/L; Status: F Test: ANION GAP; Value: 7; Range: 8-16; Abnormal: Below low normal; Units: MEQ/L; Status: F Test: CALCIUM LEVEL; Value: 8.9; Range: 8.5-10.1; Units: MG/DL; Status: F Test Note: ; Units are mL/min/1.73 m2 Chronic Kidney Disease Staging per NKF: Stage I & II GFR >=60 Normal to Mildly Decreased Stage III GFR 30-59 Moderately Decreased Stage IV GFR 15-29 Severely Decreased Stage V GFR <15 Very Little GFR Left ESRD GFR <15 on FLEXOGRAPHIC PRESS PLATE SETTER Lab Order: CBC with Diff; SPEC'M 02/11/17 11:57 Test: WHITE BLOOD COUNT; Value: 7.3; Range: 4.0-10.0; Units: K/mm3; Status: F Test: RED BLOOD COUNT; Value: 4.58; Range: 4.30-6.10; Units: M/mm3; Status: F Test: HEMOGLOBIN; Value: 15.3; Range: 14.0-18.0; Units: g/dl; Status: F Test: HEMATOCRIT; Value: 46.5; Range: 42.0-52.0; Units: %; Status: F Test: MEAN CORPUSCULAR VOLUME; Value: 101.5; Range: 80.0-96.0; Abnormal: Above high normal; Units: fl; Status: F Test: MEAN CORPUSCULAR HEMOGLOBIN; Value: 33.3; Range: 27.0-33.0; Abnormal: Above high normal; Units: pg; Status: F Test: MEAN CORPUSCULAR HGB CONC; Value: 32.8; Range: 32.0-36.5; Units: g/dl; Status: F Test: RED CELL DISTRIBUTION WIDTH; Value: 11.7; Range: 11.5-14.5; Units: %; Status: F Test: PLATELET COUNT, AUTOMATED; Value: 290; Range: 150-450; Units: k/mm3; Status: F Test: NEUTROPHILS %; Value: 73.7; Range: 36.0-66.0; Abnormal: Above high normal; Units: %; Status: F Test: LYMPH %; Value: 12.3; Range: 24.0-44.0; Abnormal: Below low normal; Units: %; Status: F Test: MONO %; Value: 7.8; Range: 0.0-5.0; Abnormal: Above high normal; Units: %; Status: F Test: EOS %; Value: 2.8; Range: 0.0-3.0; Units: %; Status: F Test: BASO %; Value: 0.4; Range: 0.0-1.0; Units: %; Status: F Test: LARGE UNSTAINED CELL %; Value: 3.0; Range: 0.0-4.0; Units: %; Status: F Test: NEUTROPHILS #; Value: 5.4; Range: 1.8-7.7; Units: K/mm3; Status: F Test: LYMPH #; Value: 0.9; Range: 1.5-4.5; Abnormal: Below low normal; Units: K/mm3; Status: F Test: MONO #; Value: 0.6; Range: 0.0-0.8; Units: K/mm3; Status: F Test: EOS #; Value: 0.2; Range: 0.0-0.50; Units: K/mm3; Status: F Test: BASO #; Value: 0.0; Range: 0.0-0.2; Units: K/mm3; Status: F Test: LARGE UNSTAINED CELL #; Value: 0.2; Range: 0.0-0.4; Units: K/mm3; Status: F Lab Order: Lipase; [facility] 06/02/16 11:57 Test: LIPASE; Value: 193; Range: 73-393; Units: U/L; Status: F Lab Order: Liver Profile; [facility] 06/02/16 11:57 Test: AST/SGOT; Value: 17; Range: 15-37; Units: U/L; Status: F Test: ALT/SGPT; Value: 25; Range: 12-78; Units: U/L; Status: F Test: ALKALINE PHOSPHATASE; Value: 81; Range: 45-117; Units: U/L; Status: F Test: BILIRUBIN,TOTAL; Value: 0.3; Range: 0.2-1.0; Units: MG/DL; Status: F Test: BILIRUBIN,DIRECT; Value: 0.1; Range: 0.0-0.2; Units: MG/DL; Status: F Test: TOTAL PROTEIN; Value: 7.1; Range: 6.4-8.2; Units: GM/DL; Status: F Test: ALBUMIN; Value: 3.7; Range: 3.2-5.2; Units: GM/DL; Status: F Test: ALBUMIN/GLOBULIN RATIO; Value: 1.09; Range: 1.00-1.93; Status: F Lab Order: Partial Thromboplastin Time; [facility] 06/02/16 11:57 Test: PARTIAL THROMBOPLASTIN TIME; Value: 28.7; Range: 26.6-37.1; Units: SECONDS; Status: F Lab Order: Prothrombin Time Profile\\E\\INR; SPEC'M 06/02/16 11:57 Test: PROTHROMBIN TIME; Value: 12.9; Range: 12.3-14.5; Units: SECONDS; Status: F Test: INR; Value: 0.96; Status: F Test Note: ; THERAPUTIC HUMAN INR VALUES INDICATIONS NORMAL RANGES PROPHYLAXIS/TREATMENT OF: VENOUS THROMBOSIS 2.0-3.0 PULMONARY EMBOLISM 2.0-3.0 PREVENTION OF SYSTEMIC EMBOLISM FROM: TISSUE HEART VALVES 2.0-3.0 ACUTE MYOCARDIAL INFARCTION 2.0-3.0 VALVULAR HEART DISEASE 2.0-3.0 ATRIAL FIBRILLATION 2.0-3.0 MECHANICAL VALVES(HIGH RISK) 2.5-3.5 RECURRENT MYOCARDIAL INFARCTION 2.5-3.5 Lab Order: UA; SPEC'M 06/02/16 11:37 Test: APPEARANCE, URINE; Value: CLEAR; Range: CLEAR; Status: F Test: COLOR, URINE; Value: YELLOW; Range: YELLOW; Status: F Test: PH,URINE; Value: 5.0; Range: 5.0-9.0; Units: UNITS; Status: F Test: SPECIFIC GRAVITY URINE AUTO; Value: 1.009; Range: 1.002-1.035; Status: F Test: PROTEIN, URINE AUTO; Value: NEGATIVE; Range: NEGATIVE; Units: mg/dL; Status: F Test: GLUCOSE, URINE (UA) AUTO; Value: NEGATIVE; Range: NEGATIVE; Units: mg/dL; Status: F Test: KETONE, URINE AUTO; Value: NEGATIVE; Range: NEGATIVE; Units: mg/dL; Status: F Test: UROBILINOGEN, URINE AUTO; Value: 0.2; Range: 0.0-2.0; Units: mg/dL; Status: F Test: BILIRUBIN, URINE AUTO; Value: NEGATIVE; Range: NEGATIVE; Status: F Test: NITRITE, URINE AUTO; Value: NEGATIVE; Range: NEGATIVE; Status: F Test: LEUKOCYTE ESTERASE, URINE AUTO; Value: NEGATIVE; Range: NEGATIVE; Status: F Test: BLOOD, URINE BLOOD; Value: NEGATIVE; Range: NEGATIVE; Status: F Test: WBC, URINE AUTO; Value: 0; Range: 0-3; Units: /HPF; Status: F Test: RBC, URINE AUTO; Value: 1; Range: 0-3; Units: /HPF; Status: F Test: BACTERIA, URINE AUTO; Value: NEGATIVE; Range: NEGATIVE; Status: F Test: SQUAMOUS EPITHELIAL CELL UR AU; Value: 0; Range: 0-6; Units: /HPF; Status: F Test: MUCUS, URINE; Value: SMALL; Range: NEGATIVE; Status: F Test: HYALINE CAST, URINE AUTO; Value: 0; Range: 0-1; Units: /LPF; Status: F Lab Order: ESR; [facility] 06/02/16 11:57 Test: ERYTHROCYTE SEDIMENTATION RATE; Value: 10; Range: 0-20; Units: mm/hr; Status: F Lab Order: CRP; [facility] 06/02/16 11:57 Test: C REACTIVE PROTEIN QUANTITATIV; Value: 0.74; Range: 0.00-0.30; Abnormal: Above high normal; Units: MG/DL; Status: F Lab Order: -Blood Culture; [facility] 06/02/16 11:57 Test: BLOOD CULTURE; Value: No growth after 24 hours . All specimens observed; Status: F Test: BLOOD CULTURE; Value: for 5 days. Results final at that time.; Status: F Test: BLOOD CULTURE; Value: No Growth after 48 hours. All Specimens observed; Status: F Test: BLOOD CULTURE; Value: for 7 days. Results final at that time.; Status: F Lab Order: Ammonia ([place] Tube on Ice, Not Pea Green); [facility] 06/02/16 11:57 Test: AMMONIA; Value: 21; Range: <32; Units: uMOL/L; Status: F Lab Order: BLOOD CULTURES; [facility] 06/02/16 12:04 Test: BLOOD CULTURE; Value: No growth after 24 hours . All specimens observed; Status: F Test: BLOOD CULTURE; Value: for 5 days. Results final at that time.; Status: F Test: BLOOD CULTURE; Value: No Growth after 48 hours. All Specimens observed; Status: F Test: BLOOD CULTURE; Value: for 7 days. Results final at that time.; Status: F Radiology Order: Abdomen, Flat\\E\\Upright,PA Chest Test: Abdomen, Flat\\E\\Upright,PA Chest REASON FOR EXAMINATION: Abdomen Pain; ACUTE ABDOMINAL SERIES: 06/02/2016.; ; Comparison: Chest x-ray 03/01/2011.; ; Clinical history: Abdominal pain.; ; Findings:; ; PA chest: The lungs are well inflated and without infiltrate, effusion,; atelectasis or mass. Heart, mediastinal and hilar contours are normal. Airway; intact. There are degenerative changes in the spine and shoulders. Some soft; tissue calcifications about the greater tuberosity on the left may reflect some; calcific tendinopathy. No free air under the diaphragm.; ; Flat upright abdomen: Mostly fluid-filled small bowel loops in the right upper; quadrant and pelvis with some air in nondilated bowel loops in the left upper; quadrant, a few these have air fluid levels and the pattern suggests some; gastroenteritis or ileus. I see no obstruction, mass, free air or other acute; finding. No abnormal soft tissue calcifications. There are degenerative changes; in the lower lumbar spine and facets as well as at the hips. There is an; injection granuloma overlying the left buttock and iliac wing.; ; Impression:; ; 1. Nonspecific gas pattern without obstruction, mass or free air. There are; mostly fluid-filled small bowel loops with a few air-fluid levels but no; dilatation. This suggests gastroenteritis or ileus.; ; 2. No abnormal calcifications overlying the renal fossae or expected course of; the ureters.; ; 3. Degenerative changes lower lumbar spine and hips.; ; 4. PA chest negative.; ; ; Signed by; Oscar Szymanski MD 06/02/2016 07:37 P; Outcome: 12:00 Discharge Assessment: Patient awake, alert and oriented x 3. No cognitive and/or mk4 functional deficits noted. Patient verbalized understanding of disposition instructions. Patient awake and alert. awake. Discharge Assessment: patient administered narcotics - no. The following High Risk Discharge criteria are identified: None. Condition: good Condition: stable. No special radiology studies were completed. Property sent home with patient. 13:49 Discharge ordered by Provider. cc10 14:08 Patient left the ED. mk4 Signatures: Dispatcher [employer] EDMS Rosmery Delvalle, Tyler Wilson RN RN RN mlb1 Daisy Amaya RN RN ck1 Carlee SandersRN RN rs3 Maciel Hong jml1 Sarahi Estrada mm15 Asya Ballard, [facility]ICS [facility]AT[facility] CHIEF CL[facility] CHIEF elp Aleksandra Travis RN RN mk4 Javi Lopez, PA-C PA-C cc10 Kerline Pineda Chart Complete MTDD
== END 2016-06-02 14:08 | disposition home or self-care (01) ==
LOC: M ED 11:22
DX: R10.31 Right lower quadrant pain (principal); L50.9 Urticaria, unspecified; Z79.899 Other long term (current) drug therapy; F17.210 Nicotine dependence, cigarettes, uncomplicated
CPT/HCPCS: 36415; 74022; 80048; 80076; 81001; 82140; 83690; 85025; 85610; 85652; 85730; 86140; 87040; 96374; 96375; 99284; J1200; J1885; J2930

== ENCOUNTER → 2016-06-18 | Outpatient (REF) | payer BC ==
[2016-06-18 11:45] LABS: MEAN CORPUSCULAR HEMOGLOBIN 33.8 pg (27.0-33.0); MEAN CORPUSCULAR HGB CONC 33.7 g/dl (32.0-36.5); MEAN CORPUSCULAR VOLUME 100.3 fl (80.0-96.0); RED CELL DISTRIBUTION WIDTH 12.1 % (11.5-14.5)
[2016-06-18 12:40] LABS: BASOPHILS 2 % (0-4); EOSINOPHILS 1 % (0-5)
== END ==
LOC: M SFHCPLAZ 08:31
PROVIDERS: ATTEND Internal Medicine
DX: L03.818 Cellulitis of other sites (principal); L30.9 Dermatitis, unspecified

== ENCOUNTER 2016-06-28 16:00 | Emergency (ER) | payer BC ==
[~2016-06-28] VITALS: Ht 167.6 cm; Wt 81.6 kg
[2016-06-28] MEDS ORDERED: CLINDAMYCIN (16:33)
[2016-06-28] MEDS ORDERED: TACR0.1O4 (16:33)
[2016-06-28] MEDS ORDERED: DIPH25CA (16:33)
[2016-06-28] MEDS ORDERED: CLIN1CAP5 PO (16:34)
[2016-06-28] MEDS ORDERED: MORPHINE 4 MG/ML 1ML SYRINGE IV ONE (19:00)
[2016-06-28 19:44] LABS: BASO # 0.1 K/mm3 (0.0-0.2); BASO % 0.8 % (0.0-1.0); EOS # 0.6 K/mm3 (0.0-0.50); EOS % 6.9 % (0.0-3.0); LARGE UNSTAINED CELL # 0.1 K/mm3 (0.0-0.4); LARGE UNSTAINED CELL % 1.5 % (0.0-4.0); LYMPH # 1.4 K/mm3 (1.5-4.5); LYMPH % 15.8 % (24.0-44.0); MEAN CORPUSCULAR HEMOGLOBIN 33.5 pg (27.0-33.0); MEAN CORPUSCULAR HGB CONC 33.7 g/dl (32.0-36.5); MEAN CORPUSCULAR VOLUME 99.5 fl (80.0-96.0); MONO # 0.8 K/mm3 (0.0-0.8); MONO % 9.4 % (0.0-5.0); NEUTROPHILS # 5.4 K/mm3 (1.8-7.7); NEUTROPHILS % 65.6 % (36.0-66.0); PLATELET COUNT, AUTOMATED 301 k/mm3 (150-450); RED CELL DISTRIBUTION WIDTH 12.2 % (11.5-14.5); WHITE BLOOD COUNT 8.3 K/mm3 (4.0-10.0)
[2016-06-28 19:59] LABS: ALBUMIN 3.7 GM/DL (3.2-5.2); ALKALINE PHOSPHATASE 92 U/L (45-117); ALT/SGPT 25 U/L (12-78); ANION GAP 9 MEQ/L (8-16); AST/SGOT 17 U/L (15-37); BILIRUBIN,TOTAL 0.3 MG/DL (0.2-1.0); BLOOD UREA NITROGEN 7 MG/DL (7-18); CALCIUM LEVEL 8.7 MG/DL (8.5-10.1); CARBON DIOXIDE LEVEL 25 MEQ/L (21-32); CHLORIDE LEVEL 106 MEQ/L (98-107); CREATININE FOR GFR 0.82 MG/DL (0.70-1.30); GLOMERULAR FILTRATION RATE > 60.0 (>56); GLUCOSE, FASTING 88 MG/DL (70-105); SODIUM LEVEL 140 MEQ/L (136-145); TOTAL PROTEIN 7.4 GM/DL (6.4-8.2)
[2016-06-28 20:04] LABS: ERYTHROCYTE SEDIMENTATION RATE 7 mm/hr (0-20)
[2016-06-28] MEDS ORDERED: NORCO, ANEXSIA 5/325MG TABLET (HYDROcodone/ACETAMINOPHEN) PO ONE (21:00)
[2016-06-28] MEDS ORDERED: FUROSEMIDE 20 MG/2 ML VIAL (J1940) IV ONE (21:00)
[2016-06-28] MEDS ORDERED: hydrOXYzine INJ 50 MG/ML VIAL (J3410) IM ONE (21:00)
[2016-06-28] MEDS ORDERED: NORCOTAB PO (22:20)
[2016-06-28 22:31] VITALS: BP 109/71
--- NOTE | 2016-06-29 06:58 | REP ---
CHEST X-RAY PA AND LATERAL: 06/28/2016. Comparison: 06/02/2016 PA chest, chest x-ray 03/01/2011. Clinical history: Intermittent dyspnea. Findings. The two-view show the lung lowry well inflated. No pleural effusion, lateral pleural thickening, apical scarring or pneumothorax. I see no acute infiltrate. Heart is not enlarged. There is no vascular redistribution or pulmonary edema. The aorta is normal. Airway is intact. Some minor AC joint degenerative changes right greater than left. Bony thorax shows marginal osteophytes without acute compression deformity. No destructive lesions in the chest. No free air under the diaphragm. Impression: 1. No acute cardiopulmonary change. Stable chest. Signed by Oscar Szymanski MD 06/29/2016 11:51 A
[2016-07-01 00:06] LABS: Lyme Disease IgG/IgM Antibodie <0.91 ISR (0.00-0.90); Lyme Disease IgM Ab Quantitati <0.80 index (0.00-0.79)
== END 2016-06-28 22:36 | disposition home or self-care (01) ==
LOC: M ED 17:41
DX: L30.9 Dermatitis, unspecified (principal); Z79.82 Long term (current) use of aspirin; Z79.899 Other long term (current) drug therapy; F17.210 Nicotine dependence, cigarettes, uncomplicated; G47.00 Insomnia, unspecified
CPT/HCPCS: 36415; 71020; 80053; 85025; 85652; 86038; 86140; 86617; 86780; 96372; 96374; 96375; 99283; J1940; J3410

== ENCOUNTER → 2016-07-02 | Outpatient (REF) | payer BC ==
[~2016-07-02] MED LIST changes: +CLIN1CAP5 PO; +CLINDAMYCIN; +DIPH25CA; +NORCOTAB PO; +TACR0.1O4
== END ==
LOC: M SFHCPLAZ 08:33
PROVIDERS: ATTEND Internal Medicine
DX: L85.9 Epidermal thickening, unspecified (principal); Z53.8 Procedure and treatment not carried out for other reasons

== ENCOUNTER → 2016-07-06 | Outpatient (CLI) | payer BC | LOC: M WUC 17:00 | PROVIDERS: ATTEND Family Medicine | DX: L85.9 Epidermal thickening, unspecified (principal) ==

== ENCOUNTER → 2016-08-28 | Outpatient (CLI) | payer BC ==
[2016-08-28 14:46] LABS: ALBUMIN 3.5 GM/DL (3.2-5.2); ALBUMIN/GLOBULIN RATIO 1.09 (1.00-1.93); ALKALINE PHOSPHATASE 86 U/L (45-117); ALT/SGPT 17 U/L (12-78); ANION GAP 8 MEQ/L (8-16); AST/SGOT 16 U/L (15-37); BILIRUBIN,DIRECT 0.1 MG/DL (0.0-0.2); BILIRUBIN,TOTAL 0.6 MG/DL (0.2-1.0); BLOOD UREA NITROGEN 6 MG/DL (7-18); CALCIUM LEVEL 8.9 MG/DL (8.5-10.1); CARBON DIOXIDE LEVEL 26 MEQ/L (21-32); CHLORIDE LEVEL 106 MEQ/L (98-107); CREATININE FOR GFR 0.81 MG/DL (0.70-1.30); GLOMERULAR FILTRATION RATE > 60.0 (>56); GLUCOSE, FASTING 101 MG/DL (70-105); POTASSIUM SERUM 4.3 MEQ/L (3.5-5.1); SODIUM LEVEL 140 MEQ/L (136-145); TOTAL PROTEIN 6.7 GM/DL (6.4-8.2)
[2016-08-28 14:47] LABS: BASO % 0.3 % (0.0-1.0); EOS # 0.6 K/mm3 (0.0-0.50); EOS % 9.1 % (0.0-3.0); LARGE UNSTAINED CELL # 0.1 K/mm3 (0.0-0.4); LARGE UNSTAINED CELL % 1.7 % (0.0-4.0); LYMPH # 1.3 K/mm3 (1.5-4.5); LYMPH % 16.2 % (24.0-44.0); MEAN CORPUSCULAR HEMOGLOBIN 33.4 pg (27.0-33.0); MEAN CORPUSCULAR HGB CONC 33.1 g/dl (32.0-36.5); MEAN CORPUSCULAR VOLUME 100.8 fl (80.0-96.0); MONO # 0.5 K/mm3 (0.0-0.8); MONO % 7.1 % (0.0-5.0); NEUTROPHILS # 4.6 K/mm3 (1.8-7.7); NEUTROPHILS % 65.6 % (36.0-66.0); PLATELET COUNT, AUTOMATED 242 k/mm3 (150-450); RED CELL DISTRIBUTION WIDTH 12.9 % (11.5-14.5)
[2016-08-28 21:00] LABS: CHOLESTEROL LEVEL 178 MG/DL (<200); TRIGLYCERIDES LEVEL 96 MG/DL (<150)
== END ==
LOC: M WUC 10:45
PROVIDERS: ATTEND Nurse Practitioner Family
DX: L40.0 Psoriasis vulgaris (principal); Z51.81 Encounter for therapeutic drug level monitoring; Z79.899 Other long term (current) drug therapy

== ENCOUNTER → 2016-10-20 | Outpatient (CLI) | payer BC ==
[~2016-10-20] MED LIST changes: +CLIN150C14 PO; -CLIN1CAP5 PO; +DOXE10CA PO; +EUCECRE3 TOP; +GABA-279 PO; +HIBI4LIQ TOP; +HYDR-3363 PO; +NICO14PA TD; +PRED10TA2 PO; +RANI15TA PO; +SULF1TAB23 PO; +TRIA1OI80 TOP; +TRIPOIN TOP; +[UNRECOGNIZED DRUG - CODE] PO
[2016-10-20 13:03] LABS: BASO % 0.9 % (0.0-1.0); EOS # 0.6 K/mm3 (0.0-0.50); EOS % 13.8 % (0.0-3.0); LARGE UNSTAINED CELL # 0.1 K/mm3 (0.0-0.4); LARGE UNSTAINED CELL % 1.3 % (0.0-4.0); LYMPH # 0.7 K/mm3 (1.5-4.5); LYMPH % 14.8 % (24.0-44.0); MEAN CORPUSCULAR HGB CONC 32.6 g/dl (32.0-36.5); MEAN CORPUSCULAR VOLUME 104.3 fl (80.0-96.0); MONO # 0.5 K/mm3 (0.0-0.8); MONO % 10.4 % (0.0-5.0); NEUTROPHILS # 2.7 K/mm3 (1.8-7.7); NEUTROPHILS % 58.7 % (36.0-66.0); PLATELET COUNT, AUTOMATED 191 k/mm3 (150-450); RED CELL DISTRIBUTION WIDTH 14.5 % (11.5-14.5); WHITE BLOOD COUNT 4.5 K/mm3 (4.0-10.0)
[2016-10-20 13:22] LABS: ALBUMIN 3.5 GM/DL (3.2-5.2); ALBUMIN/GLOBULIN RATIO 1.06 (1.00-1.93); ALKALINE PHOSPHATASE 85 U/L (45-117); ALT/SGPT 55 U/L (12-78); ANION GAP 8 MEQ/L (8-16); AST/SGOT 67 U/L (15-37); BILIRUBIN,DIRECT 0.1 MG/DL (0.0-0.2); BILIRUBIN,TOTAL 0.4 MG/DL (0.2-1.0); BLOOD UREA NITROGEN 3 MG/DL (7-18); CALCIUM LEVEL 8.5 MG/DL (8.5-10.1); CARBON DIOXIDE LEVEL 25 MEQ/L (21-32); CHLORIDE LEVEL 108 MEQ/L (98-107); GLOMERULAR FILTRATION RATE > 60.0 (>56); GLUCOSE, FASTING 89 MG/DL (70-105); PHOSPHORUS LEVEL 3.8 MG/DL (2.5-4.9); POTASSIUM SERUM 4.4 MEQ/L (3.5-5.1); SODIUM LEVEL 141 MEQ/L (136-145); TOTAL PROTEIN 6.8 GM/DL (6.4-8.2)
== END ==
LOC: M WUC 09:44
PROVIDERS: ATTEND Nurse Practitioner Family
DX: L44.0 Pityriasis rubra pilaris (principal)

== ENCOUNTER → 2016-10-30 | Outpatient (REF) | payer BC | LOC: M SFHCPLAZ 11:59 | PROVIDERS: ATTEND Family Medicine | DX: L44.0 Pityriasis rubra pilaris (principal) ==

== ENCOUNTER 2016-11-14 16:39 | Inpatient (IN) | payer BC ==
[~2016-11-14] VITALS: Ht 170.2 cm; Wt 81.8 kg
[~2016-11-14 16:39] MED LIST changes: -DOXE10CA PO; -EUCECRE3 TOP; -GABA-279 PO; -HIBI4LIQ TOP; -HYDR-3363 PO; -NICO14PA TD; -PRED10TA2 PO; -RANI15TA PO; -SULF1TAB23 PO; -TRIA1OI80 TOP; -TRIPOIN TOP; -[UNRECOGNIZED DRUG - CODE] PO
[2016-11-14] MEDS ORDERED: [UNRECOGNIZED DRUG - CODE] PO (16:54)
[2016-11-14] MEDS ORDERED: DOXE10CA PO (16:54)
[2016-11-14] MEDS ORDERED: GABA-279 PO (16:54)
[2016-11-14] MEDS ORDERED: CEFTAROLINE FOSAMIL 600 MG in D5W MINI-BAG PLUS 50 ML IV ONE (18:00)
[2016-11-14 18:10] LABS: BASO % 0.5 % (0.0-1.0); EOS # 0.4 K/mm3 (0.0-0.50); EOS % 4.1 % (0.0-3.0); LARGE UNSTAINED CELL # 0.1 K/mm3 (0.0-0.4); LARGE UNSTAINED CELL % 0.8 % (0.0-4.0); LYMPH # 0.9 K/mm3 (1.5-4.5); LYMPH % 8.1 % (24.0-44.0); MEAN CORPUSCULAR HEMOGLOBIN 34.6 pg (27.0-33.0); MEAN CORPUSCULAR HGB CONC 33.7 g/dl (32.0-36.5); MEAN CORPUSCULAR VOLUME 102.5 fl (80.0-96.0); MONO # 0.7 K/mm3 (0.0-0.8); MONO % 6.9 % (0.0-5.0); NEUTROPHILS # 8.4 K/mm3 (1.8-7.7); NEUTROPHILS % 79.7 % (36.0-66.0); PLATELET COUNT, AUTOMATED 358 k/mm3 (150-450); RED CELL DISTRIBUTION WIDTH 13.5 % (11.5-14.5); WHITE BLOOD COUNT 10.5 K/mm3 (4.0-10.0)
[2016-11-14] MEDS ORDERED: KETOROLAC 30 MG/ML VIAL (J1885) IV ONE (18:30)
[2016-11-14 19:19] LABS: ALBUMIN 3.1 GM/DL (3.2-5.2); ALBUMIN/GLOBULIN RATIO 0.94 (1.00-1.93); ALKALINE PHOSPHATASE 72 U/L (45-117); ALT/SGPT 27 U/L (12-78); ANION GAP 7 MEQ/L (8-16); AST/SGOT 14 U/L (15-37); BILIRUBIN,DIRECT 0.1 MG/DL (0.0-0.2); BILIRUBIN,TOTAL 0.3 MG/DL (0.2-1.0); BLOOD UREA NITROGEN 8 MG/DL (7-18); CALCIUM LEVEL 8.5 MG/DL (8.5-10.1); CARBON DIOXIDE LEVEL 26 MEQ/L (21-32); CHLORIDE LEVEL 99 MEQ/L (98-107); CREATININE FOR GFR 0.75 MG/DL (0.70-1.30); GLOMERULAR FILTRATION RATE > 60.0 (>56); GLUCOSE, FASTING 93 MG/DL (70-105); POTASSIUM SERUM 4.1 MEQ/L (3.5-5.1); SODIUM LEVEL 132 MEQ/L (136-145); TOTAL PROTEIN 6.4 GM/DL (6.4-8.2)
[2016-11-14] MEDS ORDERED: ONDANSETRON 4MG/2ML VIAL (J2405) IV ONE (19:45)
[2016-11-14] MEDS ORDERED: MORPHINE 4 MG/ML 1ML SYRINGE IV ONE (19:45)
[2016-11-14] MEDS ORDERED: ACETAMINOPHEN TAB 650MG DOSE (2X325MG) PO PRN (21:15)
[2016-11-14 23:45] VITALS: BP_SYST 117; BP_SYST 152; BP_DIAS 65; BP_DIAS 83
[2016-11-15] MEDS: PERCOCET 5MG/325MG TAB PO PRN ×4 (00:19→20:05)
[2016-11-15] MEDS: methylPREDNISolone INJ 40 MG/1 ML VIAL (J2920) IV SCH ×4 (00:19→23:35)
[2016-11-15 06:00] VITALS: BP 110/66
[2016-11-15] MEDS ORDERED: CEFTAROLINE FOSAMIL 600 MG in D5W MINI-BAG PLUS 50 ML IV SCH (06:00)
--- NOTE | 2016-11-15 07:51 | HPE ---
DATE OF ADMISSION: 11/14/2016 PRIMARY CARE PROVIDER: Dr. De La Cruz ATTENDING PHYSICIAN: Miranda Leone MD CHIEF COMPLAINT: Worsening infection in the skin and fever. HISTORY OF PRESENT ILLNESS: The patient is a 51-year-old white male with history of psoriasis who presented to the emergency room (ER) for evaluation of above complaints. History is provided by himself as well as by his . Per the patient, he has a history of psoriasis and for that he is following with cultural centre manager. He had a flu shot done recently and after that his skin became reddish and itchy which has gotten worse gradually. In the last 2 days, he states he has several infective spots in his skin including scalp, both armpits, groin area. Also, today he has a fever at home and decided to come to the hospital for further evaluation. In the ER, he was found to have a temperature of 101 and he was also found to have leukocytosis. Skin infection was cultured. He was given 600 IV ceftaroline and then medicine service called for the admission. REVIEW OF SYSTEMS: Positive fever, but no chills. No headache. No blurred vision. No shortness of breath. No chest pain. No coughing. No abdominal pain. No diarrhea. No constipation. No weakness in the arms or lower extremities. Positive itching on all skin. All other systems reviewed but are negative. PAST MEDICAL HISTORY: 1. Psoriasis. 2. Questionable cirrhosis. PAST SURGICAL HISTORY: Status post appendectomy as well as lower extremity fracture repair. ALLERGIES: No known drug allergies. FAMILY HISTORY: His father from lung cancer. SOCIAL HISTORY: He was a heavy drinker but quit 3 weeks ago. Smokes cigarettes , one pack a day for 30 years and he will still smoke marijuana occasionally. He is a FULL CODE. MEDICATIONS: - Neurontin 100 mg by mouth three times a day - doxepin 10 mg by mouth daily - acitretin 25 mg by mouth daily PHYSICAL EXAMINATION: VITAL SIGNS: Temperature 101.8, heart rate 107, respiratory rate 18, blood pressure 150/83, oxygen saturation is 98% on room air. GENERAL: He is awake, alert, oriented times three. He is not in acute distress. HEENT: Atraumatic. Pupils equal, round, reactive to light. No jaundice. Ears , nose and throat normal. Mucous moist. NECK: No jugular venous distention (JVD). LUNGS: Clear. No wheezing or crackles. HEART: S1, S2, regular. No murmurs. ABDOMEN: Soft. Bowel sounds positive. Nontender. LOWER EXTREMITIES: No edema in bilateral lower extremities. NEUROLOGICAL: Nonfocal. SKIN: He has extensive redness in his skin and some rash in the bilateral feet and he has several skin abscess in his bilateral armpits, scalp, as well as groin area. DIAGNOSTIC LABORATORY STUDIES: Including the following: CBC and differential: WBC 10.5, hemoglobin and hematocrit 15/45, platelets 358, sodium 132, potassium 4.1, chloride 99, bicarbonate 26, BUN 8, creatinine 0.75. IMPRESSION: 1. Skin abscess likely caused by methicillin-resistant Staphylococcus aureus ( MRSA). 2. Psoriasis flare. PLAN: Patient will be admitted to medical/surgical floor. I will treat him with IV ceftaroline 600 mg every 12 hours. Will follow blood as well as urine cultures. I will give him IV Solu-Medrol for psoriasis flare. Dr. Leone will followup tomorrow. KATHRYN
[2016-11-15] MEDS: DOXEPIN 10 MG CAP PO SCH ×3 (08:11→20:05)
[2016-11-15] MEDS: GABAPENTIN 100 MG CAP PO SCH ×3 (08:11→20:05)
[2016-11-15] MEDS: ENOXAPARIN 40 MG/0.4 ML SYRINGE (J1650) SC SCH (08:11)
[2016-11-15 09:27] LABS: BASO % 0.4 % (0.0-1.0); EOS # 0.1 K/mm3 (0.0-0.50); EOS % 0.9 % (0.0-3.0); LARGE UNSTAINED CELL % 0.4 % (0.0-4.0); LYMPH # 0.3 K/mm3 (1.5-4.5); LYMPH % 3.4 % (24.0-44.0); MEAN CORPUSCULAR HEMOGLOBIN 34.5 pg (27.0-33.0); MEAN CORPUSCULAR HGB CONC 33.4 g/dl (32.0-36.5); MEAN CORPUSCULAR VOLUME 103.3 fl (80.0-96.0); MONO # 0.2 K/mm3 (0.0-0.8); MONO % 1.8 % (0.0-5.0); NEUTROPHILS # 8.3 K/mm3 (1.8-7.7); NEUTROPHILS % 93.1 % (36.0-66.0); PLATELET COUNT, AUTOMATED 349 k/mm3 (150-450); WHITE BLOOD COUNT 8.9 K/mm3 (4.0-10.0)
[2016-11-15] MEDS: NAFCILLIN SOD 1 GM in D5W MINI-BAG PLUS 100 ML IV SCH ×4 (09:47→21:57)
[2016-11-15 09:51] LABS: ANION GAP 6 MEQ/L (8-16); BLOOD UREA NITROGEN 11 MG/DL (7-18); CALCIUM LEVEL 8.4 MG/DL (8.5-10.1); CARBON DIOXIDE LEVEL 27 MEQ/L (21-32); CHLORIDE LEVEL 100 MEQ/L (98-107); CREATININE FOR GFR 0.76 MG/DL (0.70-1.30); GLOMERULAR FILTRATION RATE > 60.0 (>56); GLUCOSE, FASTING 213 MG/DL (70-105); POTASSIUM SERUM 4.5 MEQ/L (3.5-5.1); SODIUM LEVEL 133 MEQ/L (136-145)
[2016-11-15 14:00] VITALS: BP 120/58
[2016-11-15 22:00] VITALS: BP 125/73
[2016-11-15] MEDS ORDERED: diphenhydrAMINE CREAM 30GM TOP PRN (23:15)
[2016-11-16] MEDS: NAFCILLIN SOD 1 GM in D5W MINI-BAG PLUS 100 ML IV SCH ×2 (01:46→06:15)
[2016-11-16 06:00] VITALS: BP 120/63
[2016-11-16 06:04] LABS: MEAN CORPUSCULAR HEMOGLOBIN 33.9 pg (27.0-33.0); MEAN CORPUSCULAR HGB CONC 32.5 g/dl (32.0-36.5); MEAN CORPUSCULAR VOLUME 104.5 fl (80.0-96.0); RED CELL DISTRIBUTION WIDTH 13.4 % (11.5-14.5); WHITE BLOOD COUNT 12.8 K/mm3 (4.0-10.0)
[2016-11-16 06:16] LABS: ANION GAP 4 MEQ/L (8-16); BLOOD UREA NITROGEN 12 MG/DL (7-18); CALCIUM LEVEL 8.6 MG/DL (8.5-10.1); CARBON DIOXIDE LEVEL 25 MEQ/L (21-32); CHLORIDE LEVEL 111 MEQ/L (98-107); CREATININE FOR GFR 0.58 MG/DL (0.70-1.30); GLOMERULAR FILTRATION RATE > 60.0 (>56); GLUCOSE, FASTING 165 MG/DL (70-105); POTASSIUM SERUM 4.5 MEQ/L (3.5-5.1); SODIUM LEVEL 140 MEQ/L (136-145)
[2016-11-16] MEDS: PERCOCET 5MG/325MG TAB PO PRN ×3 (06:52→20:49)
--- NOTE | 2016-11-16 07:13 | IPN ---
DATE: 11/15/2016 Patient seen and examined at bedside. Chart has been reviewed. This morning, patient still complains of pruritus, slight pain on the anterior thigh with erythematous lesion. Afebrile overnight. T-max of 100. No other issues per nursing. T-max 100, current temperature 96.7, pulse 74, respiratory rate 18, blood pressure 110/66, 96% on room air. Generally, awake, alert, oriented times three. Skin: Multiple erythematous psoriatic changes and lesions all over the scalp, groin, chest, abdomen, pelvis, back, bilateral upper and lower extremities. Patient has notable induration and mobile lesion on the left anterior thigh. No purulent drainage at this time. Laboratory data has been reviewed. Left leg culture, staphylococcus aureus heavy. ASSESSMENT AND PLAN: This is a 51-year-old male with history of psoriasis, questionable history of cirrhosis, follows with [facility], presents with pruritic reddish lesions, leukocytosis and a T-max of 101. Patient was given IV ceftaroline in the emergency room. Left lower extremity anterior thigh culture grew out heavy staphylococcus aureus. Antibiotics changed to nafcillin. CURRENT ISSUES: 1. Skin abscess. No prior history of Methicillin-resistant staphylococcus aureus (MRSA). Previous culture results for abscess on the shoulder shows sensitivity to oxacillin. Patient is febrile. T-max of 101.8 from the emergency room. White count is normal at 8.9. Will change to nafcillin 1 gram every 4 hours. 2. Psoriasis, outpatient followup, most likely the point of entry for bacterial infection. 3. Questionable history of cirrhosis. KIRAN screen is negative. Hepatitis serology negative. MTDD
[2016-11-16] MEDS ORDERED: CEPACOL LOZENGE PO PRN (08:15)
[2016-11-16] MEDS ORDERED: CEPACOL LOZENGE PO ONE (08:15)
[2016-11-16] MEDS ORDERED: CHLORASEPTIC SPRAY MT PRN (08:15)
[2016-11-16] MEDS: ENOXAPARIN 40 MG/0.4 ML SYRINGE (J1650) SC SCH (08:35)
[2016-11-16] MEDS: DOXEPIN 10 MG CAP PO SCH ×3 (08:36→20:49)
[2016-11-16] MEDS: GABAPENTIN 100 MG CAP PO SCH ×3 (08:36→20:49)
[2016-11-16] MEDS: NEOSPORIN TOP OINT 15GM TOP SCH ×2 (09:00→20:50)
[2016-11-16] MEDS ORDERED: VANCOMYCIN HCL 1,000 MG, VIAL MATE ADAPTER 1 EACH in D5W 250 ML IV ONE (09:00)
[2016-11-16] MEDS ORDERED: predniSONE 20 MG TAB PO ONE (09:00)
--- NOTE | 2016-11-16 09:07 | PHACANCOPD ---
PHARMACY VANCOMYCIN DOSING Pt Demographics Demographics Patient Age:51 , Weight:81.800 , Gender: male Adjusted Body Weight Date: 11/16/16, Adjusted Body Weight: Kg Events Past 24 Hours Events Past 24 Hours: YES: Fever, Elevation in WBC Vancomycin Vancomycin Target Ranges: 15-20 mcg/ml Vancomycin Load Y/N: Yes Load Dose Date Time Vancomycin Load Dose: 2G Date: 11/16/16 Time: 0900 Vancomycin Dose Date: 11/16/16. Current Vancomycin Dose: Intermittent Dosing?: No Labs Labs Item Value Date Time White Blood Count 10.5 K/mm3 H 11/14/16 1753 White Blood Count 8.9 K/mm3 11/15/16 0915 White Blood Count 12.8 K/mm3 H 11/16/16 0546 Creatinine 0.75 MG/DL 11/14/16 1845 Creatinine 0.76 MG/DL 11/15/16 0915 Creatinine 0.58 MG/DL L 11/16/16 0546 C-Reactive Protein, Quantitative 6.69 MG/DL H 11/15/16 0915 Fasting Glucose 213 MG/DL H 11/15/16 0915 Fasting Glucose 165 MG/DL H 11/16/16 0546 Vital Signs Label Value Date Time Patient Temperature 99.3 degrees F 11/15/16 2200 Temperature Source Temporal 11/15/16 2200 Patient Temperature 98.2 degrees F 11/16/16 0600 Temperature Source Temporal 11/16/16 0600 Micro Microbiology 11/14/16 Blood Culture - Preliminary, Resulted No growth after 24 hours . All specim... 11/14/16 Blood Culture - Preliminary, Resulted No growth after 24 hours . All specim... 11/15/16 MRSA Screen, Received Pending 11/15/16 Gram Stain - Final, Resulted 11/15/16 Wound Culture, Resulted Pending 11/14/16 Gram Stain - Final, Complete 11/14/16 Wound Culture - Final, Complete Staph.aureus Methicillin Resis Creatinine Clearance Date:11/16/16. Creatinine Clearance: [139.29]. Assessment and Plan Maintaining Current Dose?: Yes Reason for dose change: Other Pharmacist Note Pharmacist Note Date: 11/16/16. Pharmacist note: Pt. is a 51 year old male who presented to ED with pruritic reddish lesions. Pt. was given Ceftaroline in the ED then Nafcillin. Wound culture came back positive for MRSA so Pt. was started on IV Vancomycin 2G LD followed by 1G q8h. A trough was scheduled for 900 on 11/17 just before 4th dose. We will continue to monitor and make adjustments as needed. [facility] Nov 16, 2016 09:07
[2016-11-16] MEDS: VANCOMYCIN HCL 1,000 MG, VIAL MATE ADAPTER 1 EACH in D5W 250 ML IV SCH ×2 (10:05→18:09)
[2016-11-16 14:00] VITALS: BP 123/69
[2016-11-16] MEDS: LACTOBACILLUS ACIDOPHILUS CAP (BACID) PO SCH ×2 (14:33→20:49)
[2016-11-16] MEDS ORDERED: hydrOXYzine 25 MG TAB PO ONE (20:15)
[2016-11-17] MEDS: VANCOMYCIN HCL 1,000 MG, VIAL MATE ADAPTER 1 EACH in D5W 250 ML IV SCH ×3 (02:18→17:44)
--- NOTE | 2016-11-17 04:42 | IPN ---
DATE OF SERVICE: 11/16/2016 Patient seen and examined at the bedside. Chart has been reviewed. This morning, patient has had no fever, no chills. He continues to have complaints of pruritus, which is slightly improved at the psoriatic site. No increase and no drainage at the left anterior thigh lesion. Microbiology had called and identified the left wound culture to be methicillin-resistant Staphylococcus aureus (MRSA). Patient has been placed on contact isolation. Vancomycin has been ordered for him. He remains afebrile. Patient also complains of a sore throat with no difficulty swallowing, tolerating his diet well. Temperature 98.2, pulse 50, respiratory rate 16, blood pressure 120/63, 100% on room air. Generally, patient is awake, alert, oriented times three, answering questions appropriately. HEENT: Pupils round, reactive to light and accommodation. Extraocular muscles are intact. Neck is supple, full range of motion. Positive cervical lymphadenopathy bilaterally. Erythematous pharynx with no exudates. Lungs are clear to auscultation. No wheezing, rales or rhonchi. Heart: S1, S2, sinus rhythm. Abdomen is soft, nontender, nondistended. Positive bowel sounds. Extremities and skin: No pitting edema, but patient has multiple erythematous psoriatic changes and lesions all over the chest, back, abdomen, bilateral upper and lower extremities with a lesion noted on left anterior thigh, some induration about 1.5 cm, but no purulent drainage. White count 12.8, hemoglobin 15, hematocrit 46, platelet count 322. Sodium 140, potassium 4.5, chloride 111, bicarbonate 25, BUN 12, creatinine 0.58, glucose 165. Wound culture: MRSA sensitive to tetracycline, Bactrim, clindamycin, gentamicin, and Zyvox. Laboratory data has been reviewed, imaging studies and microbiology. ASSESSMENT AND PLAN: This is a 51-year-old male with history of psoriasis, questionable history of cirrhosis, follows with Opal Cisneros for dermatology, presented with pruritic reddish lesions, leukocytosis, maximum temperature (T-max) of 101, and was found to have a mobile lesion left anterior thigh, which was cultured. Initially, patient received ceftaroline. It grew out Staphylococcus aureus. We switched to nafcillin thinking that this was methicillin-susceptible Staphylococcus aureus (MSSA). Culture today was finalized with methicillin-resistant Staphylococcus aureus (MRSA) and patient has been placed on vancomycin. It is sensitive to tetracycline, Bactrim and clindamycin. He also complains of sore throat this morning with no difficulty swallowing. CURRENT ISSUES: 1. Skin abscess with positive MRSA on culture. Patient has been changed to intravenous vancomycin. Once he is afebrile with decreasing white count or normalization of the white count, patient may be switched to tetracycline or Bactrim as outpatient. 2. Sore throat. Check rapid Streptococcus screen and throat culture. Continue with vancomycin for now. 3. Psoriasis. Outpatient followup. 4. Questionable history of cirrhosis. KIRAN screen is negative. Hepatitis serology is negative. 5. Deep venous thrombosis (DVT) prophylaxis with Lovenox subcutaneously. 6. Peripheral neuropathy, on chronic Neurontin and if needed, Percocet. DISPOSITION: May discharge home in the morning if patient's white count is decreased.
[2016-11-17 05:54] LABS: MEAN CORPUSCULAR HEMOGLOBIN 34.8 pg (27.0-33.0); MEAN CORPUSCULAR HGB CONC 33.3 g/dl (32.0-36.5); MEAN CORPUSCULAR VOLUME 104.4 fl (80.0-96.0); RED CELL DISTRIBUTION WIDTH 13.2 % (11.5-14.5); WHITE BLOOD COUNT 9.4 K/mm3 (4.0-10.0)
[2016-11-17 06:00] VITALS: BP 135/79
[2016-11-17 06:16] LABS: ANION GAP 8 MEQ/L (8-16); BLOOD UREA NITROGEN 13 MG/DL (7-18); CALCIUM LEVEL 8.4 MG/DL (8.5-10.1); CARBON DIOXIDE LEVEL 25 MEQ/L (21-32); CHLORIDE LEVEL 107 MEQ/L (98-107); CREATININE FOR GFR 0.55 MG/DL (0.70-1.30); GLOMERULAR FILTRATION RATE > 60.0 (>56); GLUCOSE, FASTING 96 MG/DL (70-105); POTASSIUM SERUM 3.9 MEQ/L (3.5-5.1); SODIUM LEVEL 140 MEQ/L (136-145)
[2016-11-17] MEDS ORDERED: NITROGLYCERIN 0.3 MG SUBL TAB SL STA (07:37)
[2016-11-17] MEDS ORDERED: MORPHINE 2 MG/ML 1ML SYRINGE IV ONE (08:00)
[2016-11-17] MEDS ORDERED: IPRATROPIUM 0.5MG/ALBUTEROL 2.5MG INH SOL UD 3ML (DUONEB)(J7620) NEB ONE (08:15)
[2016-11-17] MEDS ORDERED: predniSONE 10 MG TAB PO ONE (09:00)
[2016-11-17 09:37] LABS: CONTROL LINE MONO INT CTR LINE PRESENT
[2016-11-17] MEDS: GABAPENTIN 100 MG CAP PO SCH ×3 (09:44→21:21)
[2016-11-17] MEDS: ENOXAPARIN 40 MG/0.4 ML SYRINGE (J1650) SC SCH (09:44)
[2016-11-17] MEDS: LACTOBACILLUS ACIDOPHILUS CAP (BACID) PO SCH ×2 (09:45→21:21)
[2016-11-17] MEDS: DOXEPIN 10 MG CAP PO SCH ×3 (09:45→21:21)
[2016-11-17] MEDS: NEOSPORIN TOP OINT 15GM TOP SCH ×2 (09:45→21:22)
[2016-11-17] MEDS ORDERED: GI COCKTAIL 50ML BTL(HYOSCYAMINE/MAALOX/LIDOCAINE VISCOUS)(1:3:1) PO ONE (10:00)
[2016-11-17] MEDS: NICOTINE 14 MG/24 HR TRANSDERMAL TD SCH (13:45)
[2016-11-17] MEDS: hydrOXYzine 25 MG TAB PO PRN ×2 (13:45→18:08)
[2016-11-17] MEDS: MUPIROCIN 2% OINT 22 GM TUBE TOP SCH ×3 (13:45→21:22)
[2016-11-17] MEDS: EUCERIN 120GM CREAM TOP SCH ×2 (13:46→21:20)
[2016-11-17 14:00] VITALS: BP 129/74
[2016-11-17] MEDS ORDERED: GI COCKTAIL 50ML BTL(HYOSCYAMINE/MAALOX/LIDOCAINE VISCOUS)(1:3:1) PO PRN (15:00)
[2016-11-17] MEDS: PERCOCET 5MG/325MG TAB PO PRN (21:21)
--- NOTE | 2016-11-17 21:24 | ECGEPIP ---
Stationary ECG Study [facility] Test Date: 2016-11-17 Pat Name: ALBINO GRANDA Department: Room: [place] [address] Gender: M [employer]: : 1965 Requested By: SHOAIB Sifuentes Order Number: [id number] Reading MD: Benito Greenfield Measurements Intervals [place] Rate: 66 P: 29 TN: 143 QRS: 10 QRSD: 83 T: 15 QT: 404 QTc: 423 Interpretive Statements SINUS RHYTHM Comparison tracing not on file Electronically Signed On 11-17-2016 21:24:09 EDT by Benito Greenfield
[2016-11-17 22:00] VITALS: BP 130/60
--- NOTE | 2016-11-17 23:57 | IPN ---
DATE OF SERVICE: 11/17/2016 Patient seen and examined at the bedside. Chart has been reviewed. This morning, patient complains of chest pain substernal, no radiation, without nausea or vomiting. No shortness of breath, palpitations, or diaphoresis. EKG was normal sinus rhythm with no acute ischemic changes. Cardiac markers showed troponin of less than 0.02. Improved with Maalox. No fever, chills. Still complains of sore throat and difficulty swallowing, but able to tolerate his diet. Temperature 98.1, pulse 60, respiratory rate 20, blood pressure 135/79, 98% on room air. Generally, awake, alert, oriented times three, answering questions appropriately. Axilla mobile tender lesions measuring 1 cm in the axilla, most likely hidradenitis suppurativa. He appears to be erythematous all over with dry psoriatic changes in bilateral upper, lower extremities. Hands have a stiff climation and white scaly skin. Lungs are clear to auscultation. No wheezing, rales or rhonchi. Heart: S1, S2, sinus rhythm. Abdomen is soft, nontender, nondistended. Extremities: Slight induration left anterior thigh. No purulence. Psoriatic erythematous plaques noted on bilateral upper, lower extremities, chest , abdomen and back. CBC, metabolic panel have been reviewed. Troponin less than 0.02. EKG sinus rhythm, no acute ischemic changes. ASSESSMENT AND PLAN: This is a 51-year-old man, history of psoriasis, follows with Opal Cisneros from dermatology, presented with pruritic reddish lesions, leukocytosis, fever of 101-102 and mobile tender lesion left anterior thigh, which was cultured and found to be methicillin-resistant Staphylococcus aureus (MRSA) abscess. Patient was initially given ceftaroline, grew out Staphylococcus aureus thought to be secondary to methicillin-susceptible Staphylococcus aureus (MSSA), switched to nafcillin, then grew out MRSA, currently on intravenous vancomycin. He also complains of a sore throat and chest pain this morning. IMPRESSION: 1. Methicillin-resistant Staphylococcus aureus (MRSA) abscess left anterior thigh. Patient is currently on intravenous (IV) vancomycin, no fever. Dosed by pharmacy. May discharge home on tetracycline once patient is afebrile, no white count. 2. Hidradenitis suppurativa. Patient will do warm soaks and continue with IV antibiotics vancomycin for now. 3. Chest pain. Atypical, most likely gastrointestinal (GI) in nature. GI cocktail. Cardiac marker was negative. EKG was showing no acute ischemia, no T-wave inversions, peak T waves or ST-T wave changes. If recurrent, may cycle cardiac markers. Nitroglycerin was given, as well as intravenous morphine with some relief. GI cocktail as needed. 4. Psoriasis. Outpatient followup with his compliance auditor, Opal Cisneros. Rapid tapering of steroids. 5. Sore throat. Most likely viral, throat culture is negative. 6. Deep venous thrombosis (DVT) prophylaxis with subcutaneous heparin. 7. Questionable history of cirrhosis. Hepatitis serology and KIRAN are negative. 8. Peripheral neuropathy. On chronic Neurontin. DISPOSITION: May discharge home Saturday or Saturday depending on patient's comfort , as well as if decreasing white count and afebrile. MTDD
[2016-11-18] MEDS: VANCOMYCIN HCL 1,000 MG, VIAL MATE ADAPTER 1 EACH in D5W 250 ML IV SCH ×3 (02:58→18:19)
[2016-11-18] MEDS: PERCOCET 5MG/325MG TAB PO PRN (05:53)
[2016-11-18 06:00] VITALS: BP 131/74
[2016-11-18 06:03] LABS: MEAN CORPUSCULAR HEMOGLOBIN 34.6 pg (27.0-33.0); MEAN CORPUSCULAR HGB CONC 33.5 g/dl (32.0-36.5); MEAN CORPUSCULAR VOLUME 103.2 fl (80.0-96.0); RED CELL DISTRIBUTION WIDTH 13.2 % (11.5-14.5); WHITE BLOOD COUNT 8.2 K/mm3 (4.0-10.0)
[2016-11-18 06:19] LABS: ANION GAP 7 MEQ/L (8-16); BLOOD UREA NITROGEN 11 MG/DL (7-18); CALCIUM LEVEL 8.6 MG/DL (8.5-10.1); CARBON DIOXIDE LEVEL 29 MEQ/L (21-32); CHLORIDE LEVEL 106 MEQ/L (98-107); GLOMERULAR FILTRATION RATE > 60.0 (>56); GLUCOSE, FASTING 103 MG/DL (70-105); SODIUM LEVEL 142 MEQ/L (136-145)
[2016-11-18] MEDS ORDERED: predniSONE 20 MG TAB PO ONE (09:00)
[2016-11-18] MEDS ORDERED: methylPREDNISolone INJ 125 MG/2 ML VIAL (J2930) IV ONE (09:00)
[2016-11-18] MEDS: NICOTINE 14 MG/24 HR TRANSDERMAL TD SCH (09:00)
[2016-11-18] MEDS: DOXEPIN 10 MG CAP PO SCH ×3 (10:04→20:21)
[2016-11-18] MEDS: LACTOBACILLUS ACIDOPHILUS CAP (BACID) PO SCH ×2 (10:04→20:21)
[2016-11-18] MEDS: GABAPENTIN 100 MG CAP PO SCH ×3 (10:04→20:21)
[2016-11-18] MEDS: ENOXAPARIN 40 MG/0.4 ML SYRINGE (J1650) SC SCH (10:05)
[2016-11-18] MEDS: hydrOXYzine 25 MG TAB PO SCH ×4 (10:05→20:22)
[2016-11-18] MEDS: FAMOTIDINE 20 MG TAB PO SCH ×2 (10:05→20:22)
[2016-11-18] MEDS: TRIAMCINOLONE ACET 0.1% OINTMENT 80 GM TOP SCH ×2 (10:06→20:23)
[2016-11-18] MEDS: NEOSPORIN TOP OINT 15GM TOP SCH ×2 (10:06→20:22)
[2016-11-18] MEDS: MUPIROCIN 2% OINT 22 GM TUBE TOP SCH ×3 (10:06→20:25)
[2016-11-18] MEDS: EUCERIN 120GM CREAM TOP SCH ×2 (10:07→20:23)
[2016-11-18] MEDS: methylPREDNISolone INJ 125 MG/2 ML VIAL (J2930) IV SCH ×3 (12:15→23:33)
[2016-11-18 14:00] VITALS: BP 131/78
--- NOTE | 2016-11-18 15:57 | IPN ---
DATE: 11/18/2016 The patient is seen and examined at the bedside. Chart has been reviewed. This morning, the patient complains of severe pruritus erythema all over secondary to drug reaction to his psoriatic medication, acitretin. The patient has been on oral prednisone with worsening symptoms. No fevers or chills. He still complains of sore throat as well as oozing of an abscess behind the right ear which is draining openly. Temperature 98, pulse 81, respiratory rate 20, blood pressure 130/60, 96% on room air. Generally, the patient has marked erythematous lesions, bilateral upper and lower extremities, chest, back, abdomen and face, slightly improved. He has a mobile, tender abscess noted behind the right ear about 2 cm with open drainage with purulent material. Right axilla has mobile, tender nodules with no erythema, left anterior thigh remains with a 2.5 cm indurated area with opening. No purulence. Lungs are clear to auscultation. No wheezing, rales or rhonchi. Heart: S1, S2, sinus rhythm. Abdomen is soft, nontender, nondistended. Extremities have no pitting edema. Very dry skin, scaly skin, red erythematous changes. LABORATORY DATA: White count 8, hemoglobin 15, hematocrit 45, platelet count 311. Sodium 142, potassium 4, chloride 106, bicarbonate 29, BUN 11, creatinine 0.6, glucose of 103. ASSESSMENT AND PLAN: This is a 51-year-old man with a history of psoriasis, questionable history of cirrhosis who presented to the emergency room with abscess on the left anterior thigh, fever of 101, was found to have methicillin-resistant Staphylococcus aureus (MRSA) abscess and infection as well as a drug reaction to acitretin which has been discontinued. CURRENT ISSUES: 1. Methicillin-resistant Staphylococcus aureus (MRSA) abscess in left anterior thigh and right mastoid. Currently on intravenous vancomycin. These are draining openly on the right mastoid area but not draining on the left anterior thigh. He is continue on intravenous vancomycin. He has been afebrile with no white count. 2. Drug reaction to acitretin. We will change from oral prednisone to IV Solu-Medrol due to increased pruritus, Zantac, Atarax and topical triamcinolone to decrease pruritus and erythema. Monitor for any other issues. 3. History of psoriasis with current flare. Acitretin has been discontinued due to drug eruption.
[2016-11-18 22:00] VITALS: BP 142/78
[2016-11-19] MEDS: VANCOMYCIN HCL 1,000 MG, VIAL MATE ADAPTER 1 EACH in D5W 250 ML IV SCH (02:05)
[2016-11-19 05:45] LABS: MEAN CORPUSCULAR HEMOGLOBIN 34.3 pg (27.0-33.0); MEAN CORPUSCULAR HGB CONC 33.1 g/dl (32.0-36.5); MEAN CORPUSCULAR VOLUME 103.5 fl (80.0-96.0); RED CELL DISTRIBUTION WIDTH 13.3 % (11.5-14.5); WHITE BLOOD COUNT 10.8 K/mm3 (4.0-10.0)
[2016-11-19 06:00] VITALS: BP 152/86
[2016-11-19 06:00] LABS: ANION GAP 10 MEQ/L (8-16); BLOOD UREA NITROGEN 15 MG/DL (7-18); CALCIUM LEVEL 8.8 MG/DL (8.5-10.1); CARBON DIOXIDE LEVEL 24 MEQ/L (21-32); CHLORIDE LEVEL 106 MEQ/L (98-107); CREATININE FOR GFR 0.69 MG/DL (0.70-1.30); GLOMERULAR FILTRATION RATE > 60.0 (>56); GLUCOSE, FASTING 245 MG/DL (70-105); SODIUM LEVEL 140 MEQ/L (136-145)
[2016-11-19] MEDS: methylPREDNISolone INJ 125 MG/2 ML VIAL (J2930) IV SCH (06:07)
[2016-11-19] MEDS ORDERED: predniSONE 10 MG TAB PO ONE (09:00)
[2016-11-19] MEDS: NICOTINE 14 MG/24 HR TRANSDERMAL TD SCH (09:00)
[2016-11-19] MEDS ORDERED: BACTRIM 160MG/800MG DS TAB PO SCH (09:00)
[2016-11-19] MEDS: LACTOBACILLUS ACIDOPHILUS CAP (BACID) PO SCH (09:12)
[2016-11-19] MEDS: GABAPENTIN 100 MG CAP PO SCH (09:12)
[2016-11-19] MEDS: hydrOXYzine 25 MG TAB PO SCH (09:12)
[2016-11-19] MEDS: FAMOTIDINE 20 MG TAB PO SCH (09:12)
[2016-11-19] MEDS: ENOXAPARIN 40 MG/0.4 ML SYRINGE (J1650) SC SCH (09:13)
[2016-11-19] MEDS: EUCERIN 120GM CREAM TOP SCH (09:14)
[2016-11-19] MEDS: NEOSPORIN TOP OINT 15GM TOP SCH (09:15)
[2016-11-19] MEDS: TRIAMCINOLONE ACET 0.1% OINTMENT 80 GM TOP SCH (09:15)
[2016-11-19] MEDS: MUPIROCIN 2% OINT 22 GM TUBE TOP SCH (09:15)
[2016-11-19] MEDS ORDERED: TRIPOIN TOP (09:19)
[2016-11-19] MEDS ORDERED: TRIA1OI80 TOP (09:19)
[2016-11-19] MEDS ORDERED: NICO14PA TD (09:19)
[2016-11-19] MEDS ORDERED: RANI15TA PO (09:19)
[2016-11-19] MEDS ORDERED: PRED10TA2 PO (09:19)
[2016-11-19] MEDS ORDERED: HYDR-3363 PO (09:19)
[2016-11-19] MEDS ORDERED: HIBI4LIQ TOP (09:23)
[2016-11-19] MEDS ORDERED: SULF1TAB23 PO (09:56)
[2016-11-19] MEDS ORDERED: EUCECRE3 TOP (09:56)
[2016-11-19] MEDS: DOXEPIN 10 MG CAP PO SCH (10:12)
--- NOTE | 2016-11-20 08:29 | DSES ---
DATE OF ADMISSION: 11/14/2016 DATE OF DISCHARGE: 11/19/2016 PRIMARY DISCHARGE DIAGNOSES: 1. Drug reaction to acitretin with a drug rash. 2. Methicillin resistant Staphylococcus aureus (MRSA) abscess of left anterior thigh and right mastoid area. 3. Hidradenitis suppurativa of right axilla. 4. History of psoriasis. DISCHARGE MEDICATIONS: - Bactrim one tablet by mouth twice a day - Hibiclens solution 4% topically daily - triple antibiotic to bilateral nares twice a day - nicotine patch 14 mg daily - Eucerin topically twice a day - hydroxyzine 25 mg four times a day - prednisone taper - ranitidine 150 twice a day - triamcinolone ointment on erythematous lesions, avoid ulcers and wound - doxepin 10 mg three times a day - gabapentin 100 mg three times a day HOSPITALIZATION COURSE: 51-year-old male treated with acitretin for chronic psoriasis, presented with worsening generalized maculopapular rash and a fever of 103 at home, 101 and 102. The patient had a flu shot recently and had his skin become red and itchy, which worsened and developed severe drug reaction with maculopapular rash, no wheezing. He was given IV Solu-Medrol. He was noted to have purulent discharge in left anterior thigh with an abscess and was treated with IV ceftaroline. Wound culture grew out Staphylococcus aureus to be methicillin sensitive Staphylococcus aureus (MSSA) and the patient was switched to nafcillin. He was afebrile. Final culture results grew out methicillin resistant Staphylococcus aureus (MRSA) and the patient was changed to IV vancomycin. He had no relief with IV Solu-Medrol for the drug reaction rash, thought to be secondary to Soriatane, therefore the patient was given Zantac, triamcinolone ointment and Atarax with significant improvement. The patient had normalization of temperature and was afebrile for four days prior to discharge. White count is slightly increased to 10.8 due to Solu-Medrol. The patient's drug rash improved. He had episodes of hyperglycemia due to Solu-Medrol. MRSA screen was positive. Wound culture was MRSA and that was sensitive to tetracycline, gentamicin, clindamycin, Bactrim and vancomycin. The patient is discharged in stable condition to have warm compresses to the right axilla. Followup with primary care provider within one week of discharge. LABORATORY DATA ON DISCHARGE: White count 10.8, hemoglobin 14, hematocrit 44, platelet count 314. Sodium 140, potassium 4.0, chloride 106, bicarbonate 24, BUN 15, creatinine 0.69, glucose 245. Left leg wound culture on 11/15/2016 MRSA, sensitive to clindamycin, gentamicin, linezolid, Zyvox, tetracycline, Bactrim, and vancomycin. FOLLOWUP ISSUES: The patient also complains of tinea cruris. Primary care provider to refer to podiatry as outpatient.
[2016-11-20] MEDS ORDERED: predniSONE 5 MG TAB PO ONE (09:00)
== END 2016-11-19 10:43 | disposition home or self-care (01) | DRG 383 ==
LOC: M ED 16:39 → M ED INP 21:03 → EEVIPCON 21:03 → M MSPAV 23:45
PROVIDERS: ADMIT Hospitalist; ATTEND General Practice
DX: L02.416 Cutaneous abscess of left lower limb (principal); H70.001 Acute mastoiditis without complications, right ear; G62.9 Polyneuropathy, unspecified; B95.62 Methicillin resistant Staphylococcus aureus infection as the cause of diseases classified elsewhere; B35.6 Tinea cruris; F10.21 Alcohol dependence, in remission; T50.995A Adverse effect of other drugs, medicaments and biological substances, initial encounter; L73.2 Hidradenitis suppurativa; L40.9 Psoriasis, unspecified; F17.210 Nicotine dependence, cigarettes, uncomplicated; Z79.899 Other long term (current) drug therapy; Z80.1 Family history of malignant neoplasm of trachea, bronchus and lung

== ENCOUNTER → 2016-12-10 | Outpatient (REF) | payer BC ==
[~2016-12-10] MED LIST changes: +DOXE10CA PO; +EUCECRE3 TOP; +GABA-279 PO; +HIBI4LIQ TOP; +HYDR-3363 PO; +NICO14PA TD; +PRED10TA2 PO; +RANI15TA PO; +SULF1TAB23 PO; +TRIA1OI80 TOP; +TRIPOIN TOP; +[UNRECOGNIZED DRUG - CODE] PO
[2016-12-10 21:49] LABS: BASO % 0.3 % (0.0-1.0); EOS % 11.3 % (0.0-3.0); LARGE UNSTAINED CELL # 0.1 K/mm3 (0.0-0.4); LYMPH % 10.4 % (24.0-44.0); MEAN CORPUSCULAR HEMOGLOBIN 34.6 pg (27.0-33.0); MEAN CORPUSCULAR HGB CONC 33.6 g/dl (32.0-36.5); MEAN CORPUSCULAR VOLUME 102.9 fl (80.0-96.0); MONO # 0.6 K/mm3 (0.0-0.8); MONO % 6.7 % (0.0-5.0); NEUTROPHILS # 6.2 K/mm3 (1.8-7.7); NEUTROPHILS % 70.3 % (36.0-66.0); PLATELET COUNT, AUTOMATED 276 k/mm3 (150-450); RED CELL DISTRIBUTION WIDTH 12.9 % (11.5-14.5); WHITE BLOOD COUNT 8.9 K/mm3 (4.0-10.0)
[2016-12-10 21:58] LABS: ALBUMIN 3.7 GM/DL (3.2-5.2); ALBUMIN/GLOBULIN RATIO 1.16 (1.00-1.93); ALKALINE PHOSPHATASE 105 U/L (45-117); ALT/SGPT 22 U/L (12-78); ANION GAP 6 MEQ/L (8-16); AST/SGOT 13 U/L (15-37); BILIRUBIN,TOTAL 0.4 MG/DL (0.2-1.0); BLOOD UREA NITROGEN 9 MG/DL (7-18); CALCIUM LEVEL 8.8 MG/DL (8.5-10.1); CARBON DIOXIDE LEVEL 30 MEQ/L (21-32); CHLORIDE LEVEL 108 MEQ/L (98-107); CREATININE FOR GFR 0.79 MG/DL (0.70-1.30); GLOMERULAR FILTRATION RATE > 60.0 (>56); GLUCOSE, FASTING 89 MG/DL (70-105); POTASSIUM SERUM 4.7 MEQ/L (3.5-5.1); SODIUM LEVEL 144 MEQ/L (136-145); TOTAL PROTEIN 6.9 GM/DL (6.4-8.2)
== END ==
LOC: M SFHCLERA 18:12
PROVIDERS: ATTEND Dermatology
DX: L53.9 Erythematous condition, unspecified (principal)

== ENCOUNTER → 2016-12-12 | Outpatient (REF) | payer BC | LOC: M SFHCLERA 15:59 | PROVIDERS: ATTEND Dermatology | DX: L53.9 Erythematous condition, unspecified (principal) ==

== ENCOUNTER → 2017-01-21 | Outpatient (REF) | payer BC ==
[2017-01-22 13:19] LABS: BASO # 0.1 10^3/uL (0.0-0.2); BASO % 0.5 % (0.0-1.0); EOS # 0.1 10^3/uL (0.0-0.50); EOS % 0.7 % (0.0-3.0); IMMATURE GRANULOCYTE % 0.3 % (0-0); LYMPH # 0.8 10^3/uL (1.5-4.5); LYMPH % 7.9 % (24.0-44.0); MEAN CORPUSCULAR HEMOGLOBIN 34.3 pg (27.0-33.0); MEAN CORPUSCULAR HGB CONC 34.1 g/dl (32.0-36.5); MEAN CORPUSCULAR VOLUME 100.8 fl (80.0-96.0); MONO % 11.1 % (0.0-5.0); NEUTROPHILS # 7.6 10^3/uL (1.8-7.7); NEUTROPHILS % 79.5 % (36.0-66.0); PLATELET COUNT, AUTOMATED 241 10^3/uL (150-450); RED CELL DISTRIBUTION WIDTH 15.7 % (11.5-14.5); WHITE BLOOD COUNT 9.5 10^3/uL (4.0-10.0)
[2017-01-22 13:33] LABS: ADD MANUAL DIFFER NO; DIFF SLIDE NUMBER 289; MONO # 1.1 10^3/uL (0.0-0.8)
[2017-01-22 15:01] LABS: ALBUMIN 3.9 GM/DL (3.2-5.2); ALBUMIN/GLOBULIN RATIO 1.08 (1.00-1.93); ALKALINE PHOSPHATASE 73 U/L (45-117); ALT/SGPT 25 U/L (12-78); ANION GAP 8 MEQ/L (8-16); AST/SGOT 21 U/L (15-37); BILIRUBIN,TOTAL 1.1 MG/DL (0.2-1.0); BLOOD UREA NITROGEN 7 MG/DL (7-18); CALCIUM LEVEL 9.4 MG/DL (8.5-10.1); CARBON DIOXIDE LEVEL 27 MEQ/L (21-32); CHLORIDE LEVEL 103 MEQ/L (98-107); GLOMERULAR FILTRATION RATE > 60.0 (>56); GLUCOSE, FASTING 75 MG/DL (70-105); POTASSIUM SERUM 4.2 MEQ/L (3.5-5.1); SODIUM LEVEL 138 MEQ/L (136-145); TOTAL PROTEIN 7.5 GM/DL (6.4-8.2)
== END ==
LOC: M SFHCLERA 17:32
PROVIDERS: ATTEND Dermatology
DX: L53.9 Erythematous condition, unspecified (principal)

== ENCOUNTER 2017-03-07 16:43 | Emergency (ER) | payer BC ==
[~2017-03-07] VITALS: Ht 170.2 cm; Wt 81.8 kg
[2017-03-07] MEDS ORDERED: BENA25CA4 PO (19:13)
[2017-03-07] MEDS ORDERED: methylPREDNISolone INJ 125 MG/2 ML VIAL (J2930) IM ONE (19:15)
[2017-03-07] MEDS ORDERED: diphenhydrAMINE 25 MG CAP PO ONE (19:30)
[2017-03-07 19:49] VITALS: BP 126/72
== END 2017-03-07 19:50 | disposition home or self-care (01) ==
LOC: M ED 16:43
DX: L30.9 Dermatitis, unspecified (principal); I25.10 Atherosclerotic heart disease of native coronary artery without angina pectoris; K57.90 Diverticulosis of intestine, part unspecified, without perforation or abscess without bleeding; F41.9 Anxiety disorder, unspecified; F32.9 Major depressive disorder, single episode, unspecified; L50.9 Urticaria, unspecified; F17.200 Nicotine dependence, unspecified, uncomplicated; Z88.8 Allergy status to other drugs, medicaments and biological substances
CPT/HCPCS: 96372; 99283; J2930

== ENCOUNTER 2017-05-07 18:26 | Emergency (ER) | payer SELFPAY, BC ==
[2017-05-07] MEDS: PANTOPRAZOLE 40MG INJ (PROTONIX) (C9113) IV (22:00)
[2017-05-07 22:34] LABS: BASO # 0.1 10^3/uL (0.0-0.2); BASO % 0.9 % (0.0-1.0); EOS # 0.9 10^3/uL (0.0-0.50); EOS % 14.6 % (0.0-3.0); HEMATOCRIT 46.1 % (42.0-52.0); HEMOGLOBIN 15.7 g/dl (14.0-18.0); IMMATURE GRANULOCYTE % 0.5 % (0-0); LYMPH # 0.7 10^3/uL (1.5-4.5); LYMPH % 10.9 % (24.0-44.0); MEAN CORPUSCULAR HEMOGLOBIN 34.5 pg (27.0-33.0); MEAN CORPUSCULAR HGB CONC 34.1 g/dl (32.0-36.5); MEAN CORPUSCULAR VOLUME 101.3 fl (80.0-96.0); MONO # 0.6 10^3/uL (0.0-0.8); MONO % 9.6 % (0.0-5.0); NEUTROPHILS % 63.5 % (36.0-66.0); PLATELET COUNT, AUTOMATED 278 10^3/uL (150-450); RED BLOOD COUNT 4.55 10^6/uL (4.30-6.10); RED CELL DISTRIBUTION WIDTH 13.7 % (11.5-14.5); WHITE BLOOD COUNT 6.4 10^3/uL (4.0-10.0)
[2017-05-07 22:48] LABS: KETONE, URINE AUTO RFX NEGATIVE (NEGATIVE); LEUKOCYTE ESTERASE UR AUTO RFX NEGATIVE (NEGATIVE); MUCUS, URINE RFX SMALL (NEGATIVE); NITRITE, URINE AUTO RFX NEGATIVE (NEGATIVE); RBC, URINE AUTO RFX 1 /HPF (0-3); SPECIFIC GRAVITY UR AUTO RFX 1.014 (1.002-1.035); SQUAM EPITHELIAL CELL UR AURFX 0 /HPF (0-6); WBC, URINE AUTO RFX 0 /HPF (0-3)
[2017-05-07 22:53] LABS: INR 0.94; PARTIAL THROMBOPLASTIN TIME 27.4 SECONDS (26.8-37.9); PROTHROMBIN TIME 12.7 SECONDS (12.4-14.5)
[2017-05-07 23:00] LABS: LACTIC ACID SEPSIS PROTOCOL 1.5 MMOL/L (0.4-2.0)
[2017-05-07 23:01] LABS: ALBUMIN 2.7 GM/DL (3.2-5.2); ALBUMIN/GLOBULIN RATIO 0.68 (1.00-1.93); ALKALINE PHOSPHATASE 94 U/L (45-117); ALT/SGPT 39 U/L (12-78); AMYLASE 129 U/L (25-115); ANION GAP 5 MEQ/L (8-16); AST/SGOT 31 U/L (7-37); BILIRUBIN,DIRECT 0.2 MG/DL (0.0-0.2); BILIRUBIN,TOTAL 0.5 MG/DL (0.2-1.0); BLOOD UREA NITROGEN 5 MG/DL (7-18); CALCIUM LEVEL 8.5 MG/DL (8.5-10.1); CARBON DIOXIDE LEVEL 28 MEQ/L (21-32); CHLORIDE LEVEL 108 MEQ/L (98-107); CREATININE FOR GFR 0.76 MG/DL (0.70-1.30); ETHYL ALCOHOL (ETHANOL) 0.005 % (0.000-0.010); GLOMERULAR FILTRATION RATE > 60.0 (>56); GLUCOSE, FASTING 157 MG/DL (70-105); LIPASE 144 U/L (73-393); POTASSIUM SERUM 3.9 MEQ/L (3.5-5.1); SODIUM LEVEL 141 MEQ/L (136-145); TOTAL PROTEIN 6.7 GM/DL (6.4-8.2)
[2017-05-07] MEDS ORDERED: ISOVUE-370 76% 100ML VIAL (Q9967) As Ordered (23:11)
[2017-05-07] MEDS: diphenhydrAMINE INJ 50MG/ML VIAL (J1200) IV (23:12)
[2017-05-08] MEDS: OXAZEPAM 15 MG CAP PO (00:09)
== END 2017-05-08 00:13 | disposition home or self-care (01) ==
LOC: M ED 05-08 00:13
DX: F10.230 Alcohol dependence with withdrawal, uncomplicated (principal); Y90.0 Blood alcohol level of less than 20 mg/100 ml; H60.91 Unspecified otitis externa, right ear; F41.9 Anxiety disorder, unspecified; F33.9 Major depressive disorder, recurrent, unspecified; L30.9 Dermatitis, unspecified; Z88.8 Allergy status to other drugs, medicaments and biological substances; F17.210 Nicotine dependence, cigarettes, uncomplicated
CPT/HCPCS: C9113

== ENCOUNTER 2017-05-16 14:22 | Emergency (ER) | payer BC, SELFPAY ==
[2017-05-16] MEDS: KETOROLAC 30 MG/ML VIAL (J1885) IV (18:40)
[2017-05-16] MEDS: NS 1,000 ML IV (18:40)
[2017-05-16 18:47] LABS: BASO # 0.1 10^3/uL (0.0-0.2); BASO % 0.9 % (0.0-1.0); EOS # 0.3 10^3/uL (0.0-0.50); EOS % 4.9 % (0.0-3.0); HEMATOCRIT 45.3 % (42.0-52.0); HEMOGLOBIN 15.4 g/dl (14.0-18.0); IMMATURE GRANULOCYTE % 0.5 % (0-0); LYMPH # 0.7 10^3/uL (1.5-4.5); LYMPH % 13.4 % (24.0-44.0); MEAN CORPUSCULAR HEMOGLOBIN 34.2 pg (27.0-33.0); MEAN CORPUSCULAR VOLUME 100.7 fl (80.0-96.0); MONO # 0.6 10^3/uL (0.0-0.8); MONO % 10.7 % (0.0-5.0); NEUTROPHILS # 3.9 10^3/uL (1.8-7.7); NEUTROPHILS % 69.6 % (36.0-66.0); PLATELET COUNT, AUTOMATED 395 10^3/uL (150-450); RED CELL DISTRIBUTION WIDTH 13.2 % (11.5-14.5); WHITE BLOOD COUNT 5.5 10^3/uL (4.0-10.0)
[2017-05-16 19:10] LABS: AMPHETAMINES LEVEL URINE NEGATIVE (NEGATIVE); BARBITURATES URINE NEGATIVE (NEGATIVE); BENZODIAZEPINES URINE NEGATIVE (NEGATIVE); CANNABINOIDS URINE POSITIVE (NEGATIVE); COCAINE METABOLITE URINE NEGATIVE (NEGATIVE); METHADONE URINE NEGATIVE (NEGATIVE); OPIATES URINE NEGATIVE (NEGATIVE); PHENCYCLIDINE URINE NEGATIVE (NEGATIVE)
[2017-05-16 19:14] LABS: ALBUMIN 2.3 GM/DL (3.2-5.2); ALBUMIN/GLOBULIN RATIO 0.47 (1.00-1.93); ALKALINE PHOSPHATASE 84 U/L (45-117); ALT/SGPT 20 U/L (12-78); ANION GAP 6 MEQ/L (8-16); AST/SGOT 30 U/L (7-37); BILIRUBIN,DIRECT < 0.1 MG/DL (0.0-0.2); BILIRUBIN,TOTAL 0.4 MG/DL (0.2-1.0); BLOOD UREA NITROGEN 7 MG/DL (7-18); C REACTIVE PROTEIN QUANTITATIV 4.37 MG/DL (0.00-0.30); CALCIUM LEVEL 8.2 MG/DL (8.5-10.1); CARBON DIOXIDE LEVEL 29 MEQ/L (21-32); CHLORIDE LEVEL 102 MEQ/L (98-107); CREATININE FOR GFR 0.65 MG/DL (0.70-1.30); ETHYL ALCOHOL (ETHANOL) 0.006 % (0.000-0.010); GLOMERULAR FILTRATION RATE > 60.0 (>56); GLUCOSE, FASTING 94 MG/DL (70-100); LIPASE 86 U/L (73-393); POTASSIUM SERUM 3.8 MEQ/L (3.5-5.1); SODIUM LEVEL 137 MEQ/L (136-145); TOTAL PROTEIN 7.2 GM/DL (6.4-8.2)
[2017-05-16 19:43] LABS: APPEARANCE, URINE HAZY (CLEAR); BACTERIA, URINE AUTO NEGATIVE (NEGATIVE); BILIRUBIN, URINE AUTO NEGATIVE (NEGATIVE); BLOOD, URINE BLOOD NEGATIVE (NEGATIVE); COLOR, URINE AMBER (YELLOW); GLUCOSE, URINE (UA) AUTO NEGATIVE (NEGATIVE); KETONE, URINE AUTO NEGATIVE (NEGATIVE); LEUKOCYTE ESTERASE, URINE AUTO NEGATIVE (NEGATIVE); MUCUS, URINE SMALL (NEGATIVE); NITRITE, URINE AUTO NEGATIVE (NEGATIVE); PROTEIN, URINE AUTO NEGATIVE (NEGATIVE); RBC, URINE AUTO 2 /HPF (0-3); SQUAMOUS EPITHELIAL CELL UR AU 0 /HPF (0-6); WBC, URINE AUTO 2 /HPF (0-3)
[2017-05-16 20:22] LABS: ERYTHROCYTE SEDIMENTATION RATE 9 mm/hr (0-20)
[2017-05-16] MEDS: methylPREDNISolone INJ 125 MG/2 ML VIAL (J2930) IV (21:10)
[2017-05-16] MEDS: MORPHINE 4 MG/ML 1ML SYRINGE IV (21:10)
[2017-05-16] MEDS: NORCO 5/325MG TABLET (BULK FOR ED) PO (23:32)
[2017-05-16] MEDS: diphenhydrAMINE 50 MG CAP PO (23:32)
[2017-05-18 15:11] LABS: ANTINUCLEAR ANTIBODIES DIRECT Negative (Negative); IgG P18 AB Absent (.); IgG P23 AB Absent (.); IgG P28 AB Absent (.); IgG P30 AB Absent (.); IgG P39 AB Absent (.); IgG P41 AB Absent (.); IgG P45 AB Absent (.); IgG P58 AB Absent (.); IgG P66 AB Absent (.); IgG P93 AB Absent (.); IgM P23 AB Absent (.); IgM P39 AB Absent (.); IgM P41 AB Absent (.); LYME IgG WB INTERPRETATION Negative (.); LYME IgM WB INTERPRETATION Negative (.)
== END 2017-05-16 23:44 | disposition home or self-care (01) ==
LOC: M ED 14:22
DX: L53.9 Erythematous condition, unspecified (principal); R52 Pain, unspecified; I25.10 Atherosclerotic heart disease of native coronary artery without angina pectoris; F10.10 Alcohol abuse, uncomplicated; K74.60 Unspecified cirrhosis of liver; F41.9 Anxiety disorder, unspecified; F32.9 Major depressive disorder, single episode, unspecified; F17.200 Nicotine dependence, unspecified, uncomplicated; Z88.8 Allergy status to other drugs, medicaments and biological substances
CPT/HCPCS: J1885

== ENCOUNTER → 2017-06-19 | Outpatient (REF) | payer BC ==
[2017-06-19 20:38] LABS: BASO % 0.2 % (0.0-1.0); EOS % 0.3 % (0.0-3.0); HEMATOCRIT 42.3 % (42.0-52.0); IMMATURE GRANULOCYTE % 0.6 % (0-3.0); LYMPH # 0.3 10^3/uL (1.5-4.5); LYMPH % 2.4 % (24.0-44.0); MEAN CORPUSCULAR HEMOGLOBIN 33.1 pg (27.0-33.0); MEAN CORPUSCULAR HGB CONC 33.1 g/dl (32.0-36.5); MONO # 0.3 10^3/uL (0.0-0.8); MONO % 2.3 % (0.0-5.0); NEUTROPHILS # 10.8 10^3/uL (1.8-7.7); NEUTROPHILS % 94.2 % (36.0-66.0); PLATELET COUNT, AUTOMATED 311 10^3/uL (150-450); RED BLOOD COUNT 4.23 10^6/uL (4.30-6.10); RED CELL DISTRIBUTION WIDTH 14.8 % (11.5-14.5); WHITE BLOOD COUNT 11.4 10^3/uL (4.0-10.0)
[2017-06-19 20:45] LABS: ALBUMIN 3.2 GM/DL (3.2-5.2); ALBUMIN/GLOBULIN RATIO 0.91 (1.00-1.93); ALKALINE PHOSPHATASE 60 U/L (45-117); ALT/SGPT 41 U/L (12-78); ANION GAP 5 MEQ/L (8-16); AST/SGOT 22 U/L (7-37); BILIRUBIN,TOTAL 0.4 MG/DL (0.2-1.0); BLOOD UREA NITROGEN 9 MG/DL (7-18); CALCIUM LEVEL 9.1 MG/DL (8.5-10.1); CARBON DIOXIDE LEVEL 31 MEQ/L (21-32); CHLORIDE LEVEL 104 MEQ/L (98-107); CREATININE FOR GFR 0.65 MG/DL (0.70-1.30); GLOMERULAR FILTRATION RATE > 60.0 (>56); GLUCOSE, FASTING 147 MG/DL (70-100); POTASSIUM SERUM 5.1 MEQ/L (3.5-5.1); SODIUM LEVEL 140 MEQ/L (136-145); TOTAL PROTEIN 6.7 GM/DL (6.4-8.2)
[2017-06-19 20:50] LABS: REASON FOR REVIEW OTHER; SLIDE REVIEW Report; SOURCE PERIPHERAL SMEAR
[2017-06-19 22:15] LABS: POSITIVE DIFF POS FLAG
== END ==
LOC: M SFHCLERA 18:08
DX: L53.9 Erythematous condition, unspecified (principal); R23.4 Changes in skin texture
CPT/HCPCS: 80053

== ENCOUNTER → 2017-07-03 | Outpatient (REF) | payer BC | LOC: M SFHCLERA 11:55 | DX: L02.415 Cutaneous abscess of right lower limb (principal); L53.9 Erythematous condition, unspecified | CPT/HCPCS: 87186 ==

== ENCOUNTER → 2017-07-15 | Outpatient (REF) | payer BC ==
[2017-07-15 21:02] LABS: BASO % 0.2 % (0.0-1.0); EOS # 0.1 10^3/uL (0.0-0.50); EOS % 0.9 % (0.0-3.0); HEMATOCRIT 46.1 % (42.0-52.0); HEMOGLOBIN 15.4 g/dl (14.0-18.0); IMMATURE GRANULOCYTE % 0.3 % (0-3.0); LYMPH % 11.3 % (24.0-44.0); MEAN CORPUSCULAR HGB CONC 33.4 g/dl (32.0-36.5); MEAN CORPUSCULAR VOLUME 98.7 fl (80.0-96.0); MONO # 0.9 10^3/uL (0.0-0.8); NEUTROPHILS # 7.2 10^3/uL (1.8-7.7); NEUTROPHILS % 77.3 % (36.0-66.0); PLATELET COUNT, AUTOMATED 267 10^3/uL (150-450); RED BLOOD COUNT 4.67 10^6/uL (4.30-6.10); RED CELL DISTRIBUTION WIDTH 14.2 % (11.5-14.5); WHITE BLOOD COUNT 9.2 10^3/uL (4.0-10.0)
[2017-07-15 21:04] LABS: ALBUMIN 3.9 GM/DL (3.2-5.2); ALBUMIN/GLOBULIN RATIO 1.08 (1.00-1.93); ALKALINE PHOSPHATASE 54 U/L (45-117); ALT/SGPT 19 U/L (12-78); ANION GAP 4 MEQ/L (8-16); AST/SGOT 10 U/L (7-37); BILIRUBIN,TOTAL 0.7 MG/DL (0.2-1.0); BLOOD UREA NITROGEN 10 MG/DL (7-18); CALCIUM LEVEL 9.5 MG/DL (8.5-10.1); CARBON DIOXIDE LEVEL 31 MEQ/L (21-32); CHLORIDE LEVEL 105 MEQ/L (98-107); CREATININE FOR GFR 0.73 MG/DL (0.70-1.30); GLOMERULAR FILTRATION RATE > 60.0 (>56); GLUCOSE, FASTING 109 MG/DL (70-100); LDH LACTATE DEHYDROGENASE 153 U/L (87-241); POTASSIUM SERUM 4.5 MEQ/L (3.5-5.1); REASON FOR REVIEW WBC/LEUKEMIA/BLAST; SLIDE REVIEW Report; SODIUM LEVEL 140 MEQ/L (136-145); SOURCE PERIPHERAL SMEAR; TOTAL PROTEIN 7.5 GM/DL (6.4-8.2); URIC ACID 4.6 MG/DL (3.5-7.2)
[2017-07-15 21:43] LABS: HIV 1&2 SCREEN CENTAUR NEGATIVE (NEGATIVE)
[2017-07-18 00:07] LABS: HTLV 1/2 ANTIBODIES QUAL Negative (Negative)
== END ==
LOC: M SFHCLERA 19:34
DX: C84.A0 Cutaneous T-cell lymphoma, unspecified, unspecified site (principal)
CPT/HCPCS: 86790

== ENCOUNTER → 2017-07-16 | Outpatient (CLI) | payer BC | LOC: M PLARAD 08:06 | DX: L53.9 Erythematous condition, unspecified (principal) | CPT/HCPCS: 78815 ==

== ENCOUNTER → 2017-07-18 | Outpatient (REF) | payer BC ==
[2017-07-18 14:10] LABS: TOTAL PROTEIN 6.7 GM/DL (6.4-8.2); URIC ACID 4.7 MG/DL (3.5-7.2)
[2017-07-19 11:14] LABS: HEPATITIS B SURFACE ANTIGEN NEGATIVE (NEGATIVE)
[2017-07-19 11:24] LABS: HEPATITIS C VIRUS ABY INDEX < 0.0 INDEX (<0.8)
[2017-07-19 11:25] LABS: HEPATITIS B CORE ANTIBODY IGM NEGATIVE (NEGATIVE)
[2017-07-19 11:31] LABS: HEPATITIS B SURFACE ANTIBODY NEGATIVE (POSITIVE)
[2017-07-20 08:16] LABS: BETA 2 MICROGLOBULIN 1.7 mg/L (0.6-2.4)
[2017-07-23 11:38] LABS: ALBUMIN 3.87 GM/DL (3.29-5.55); ALBUMIN % 57.7 % (55.8-66.1); ALPHA-1-GLOBULIN % 4.5 % (2.9-4.9); ALPHA-2-GLOBULINS 0.69 GM/DL (0.42-0.99); ALPHA-2-GLOBULINS % 10.3 % (7.1-11.8); BETA-1-GLOBULINS 0.46 GM/DL (0.28-0.60); BETA-1-GLOBULINS % 6.8 % (4.7-7.2); BETA-2-GLOBULINS 0.41 GM/DL (0.19-0.55); BETA-2-GLOBULINS % 6.1 % (3.2-6.5); GAMMA GLOBULIN % 14.6 % (11.1-18.8); GAMMA GLOBULINS 0.98 GM/DL (0.65-1.58)
== END ==
LOC: M LAB REF 13:21
DX: C85.90 Non-Hodgkin lymphoma, unspecified, unspecified site (principal)
CPT/HCPCS: 84165

== ENCOUNTER → 2017-07-19 | Outpatient (CLI) | payer BC ==
[~2017-07-19] MED LIST changes: -ASPI81TA85 PO; -CLIN150C14 PO; -CLINDAMYCIN; -DIPH25CA; -DOXE10CA PO; -EUCECRE3 TOP; -GABA-279 PO; +GASTROGRAFIN SOLUTION 30ML (Q9963) As Ordered; -HIBI4LIQ TOP; -HYDR-3363 PO; +ISOVUE-370 76% 100ML VIAL (Q9967) As Ordered; -NICO14PA TD; -NORCOTAB PO; -PRED10TA2 PO; -RANI15TA PO; -SULF1TAB23 PO; -TACR0.1O4; -TRIA1OI80 TOP; -TRIPOIN TOP; -VARE1TA PO; -[UNRECOGNIZED DRUG - CODE] PO
== END ==
LOC: M RAD 12:19
DX: C84.00 Mycosis fungoides, unspecified site (principal); N62 Hypertrophy of breast; K57.90 Diverticulosis of intestine, part unspecified, without perforation or abscess without bleeding; N63.23 Unspecified lump in the left breast, lower outer quadrant
CPT/HCPCS: Q9963

== ENCOUNTER → 2017-07-23 | Outpatient (CLI) | payer BC | LOC: M RAD 10:12 | DX: N62 Hypertrophy of breast (principal) | CPT/HCPCS: 77066 ==

== ENCOUNTER → 2017-08-26 | Outpatient (REF) | payer BC ==
[2017-08-27 11:45] LABS: BASO % 0.4 % (0.0-1.0); EOS # 0.1 10^3/uL (0.0-0.50); EOS % 0.8 % (0.0-3.0); HEMATOCRIT 45.2 % (42.0-52.0); HEMOGLOBIN 15.1 g/dl (13.5-17.5); IMMATURE GRANULOCYTE % 0.5 % (0-3.0); LYMPH # 1.5 10^3/uL (1.5-4.5); LYMPH % 14.1 % (24.0-44.0); MEAN CORPUSCULAR HEMOGLOBIN 33.2 pg (27.0-33.0); MEAN CORPUSCULAR HGB CONC 33.4 g/dl (32.0-36.5); MEAN CORPUSCULAR VOLUME 99.3 fl (80.0-96.0); MONO # 0.9 10^3/uL (0.0-0.8); MONO % 8.2 % (0.0-5.0); NEUTROPHILS # 7.9 10^3/uL (1.8-7.7); PLATELET COUNT, AUTOMATED 272 10^3/uL (150-450); RED BLOOD COUNT 4.55 10^6/uL (4.30-6.10); RED CELL DISTRIBUTION WIDTH 13.3 % (11.5-14.5); WHITE BLOOD COUNT 10.3 10^3/uL (4.0-10.0)
[2017-08-27 11:56] LABS: ALBUMIN 3.7 GM/DL (3.2-5.2); ALBUMIN/GLOBULIN RATIO 1.12 (1.00-1.93); ALKALINE PHOSPHATASE 52 U/L (45-117); ALT/SGPT 16 U/L (12-78); ANION GAP 6 MEQ/L (8-16); AST/SGOT 9 U/L (7-37); BILIRUBIN,TOTAL 0.3 MG/DL (0.2-1.0); BLOOD UREA NITROGEN 12 MG/DL (7-18); CALCIUM LEVEL 9.3 MG/DL (8.5-10.1); CARBON DIOXIDE LEVEL 27 MEQ/L (21-32); CHLORIDE LEVEL 109 MEQ/L (98-107); CREATININE FOR GFR 0.71 MG/DL (0.70-1.30); GLOMERULAR FILTRATION RATE > 60.0 (>56); GLUCOSE, FASTING 86 MG/DL (70-100); POTASSIUM SERUM 3.9 MEQ/L (3.5-5.1); SODIUM LEVEL 142 MEQ/L (136-145)
== END ==
LOC: M SFHCLERA 19:25
DX: C84.A0 Cutaneous T-cell lymphoma, unspecified, unspecified site (principal)

== ENCOUNTER → 2018-02-03 | Outpatient (REF) | payer BC | LOC: M LAB REF 20:07 | DX: L02.412 Cutaneous abscess of left axilla (principal) ==

== ENCOUNTER → 2018-03-06 | Outpatient (REF) | payer BC ==
[2018-03-06 21:13] LABS: BASO % 0.5 % (0.0-1.0); EOS # 0.2 10^3/uL (0.0-0.50); EOS % 1.9 % (0.0-3.0); HEMATOCRIT 44.9 % (42.0-52.0); IMMATURE GRANULOCYTE % 0.5 % (0-3.0); LYMPH # 1.6 10^3/uL (1.5-4.5); LYMPH % 18.7 % (24.0-44.0); MEAN CORPUSCULAR HEMOGLOBIN 32.9 pg (27.0-33.0); MEAN CORPUSCULAR HGB CONC 33.4 g/dl (32.0-36.5); MEAN CORPUSCULAR VOLUME 98.5 fl (80.0-96.0); MONO # 0.8 10^3/uL (0.0-0.8); MONO % 9.5 % (0.0-5.0); NEUTROPHILS # 5.8 10^3/uL (1.8-7.7); NEUTROPHILS % 68.9 % (36.0-66.0); PLATELET COUNT, AUTOMATED 373 10^3/uL (150-450); RED BLOOD COUNT 4.56 10^6/uL (4.30-6.10); RED CELL DISTRIBUTION WIDTH 13.7 % (11.5-14.5); WHITE BLOOD COUNT 8.5 10^3/uL (4.0-10.0)
[2018-03-06 21:28] LABS: ALBUMIN 3.7 GM/DL (3.2-5.2); ALBUMIN/GLOBULIN RATIO 1.12 (1.00-1.93); ALKALINE PHOSPHATASE 78 U/L (45-117); ALT/SGPT 20 U/L (12-78); ANION GAP 9 MEQ/L (8-16); AST/SGOT 11 U/L (7-37); BILIRUBIN,TOTAL 0.6 MG/DL (0.2-1.0); BLOOD UREA NITROGEN 7 MG/DL (7-18); CARBON DIOXIDE LEVEL 28 MEQ/L (21-32); CHLORIDE LEVEL 105 MEQ/L (98-107); CREATININE FOR GFR 0.78 MG/DL (0.70-1.30); GLOMERULAR FILTRATION RATE > 60.0 (>56); GLUCOSE, FASTING 83 MG/DL (70-100); POTASSIUM SERUM 4.4 MEQ/L (3.5-5.1); SODIUM LEVEL 142 MEQ/L (136-145)
== END ==
LOC: M SFHCLERA 18:04
DX: A49.02 Methicillin resistant Staphylococcus aureus infection, unspecified site (principal)

== ENCOUNTER → 2018-04-24 | Outpatient (REF) | payer BC ==
[~2018-04-24] MED LIST changes: +ASPI81TA85 PO; +BENA25CA4 PO; +BENA25TA10 PO; +CIPRODEX AD; +CLIN150C14 PO; +CLINDAMYCIN; +CYCLOSPORIN; +DIPH25CA; +DOXE10CA PO; +EUCECRE3 TOP; +GABA-1171 PO; -GASTROGRAFIN SOLUTION 30ML (Q9963) As Ordered; +HIBI4LIQ TOP; +HYDR-3363 PO; -ISOVUE-370 76% 100ML VIAL (Q9967) As Ordered; +NICO14PA TD; +NORCOTAB PO; +OXAZ30CA2 PO; +PERC5TAB12 PO; +PRED10TA2 PO; +PRED20TA PO; +RANI15TA PO; +SULF1TAB93 PO; +TACR0.1O4; +TRIA1OI80 TOP; +TRIPOIN5 TOP; +VARE1TA PO; +[UNRECOGNIZED DRUG - CODE] PO
== END ==
LOC: M SFHCLERA 10:15
PROVIDERS: ATTEND Dermatology
DX: L53.9 Erythematous condition, unspecified (principal)

== ENCOUNTER → 2018-05-28 | Outpatient (REF) | payer BC ==
[2018-05-28 19:42] LABS: BASO % 0.4 % (0.0-1.0); EOS # 0.6 10^3/uL (0.0-0.50); EOS % 6.9 % (0.0-3.0); HEMATOCRIT 42.4 % (42.0-52.0); LYMPH # 0.7 10^3/uL (1.5-4.5); LYMPH % 7.9 % (24.0-44.0); MEAN CORPUSCULAR HEMOGLOBIN 31.2 pg (27.0-33.0); MEAN CORPUSCULAR VOLUME 94.4 fl (80.0-96.0); MONO % 11.6 % (0.0-5.0); NEUTROPHILS % 72.7 % (36.0-66.0); PLATELET COUNT, AUTOMATED 310 10^3/uL (150-450); RED BLOOD COUNT 4.49 10^6/uL (4.30-6.10); WHITE BLOOD COUNT 8.3 10^3/uL (4.0-10.0)
[2018-05-28 19:47] LABS: ALBUMIN 3.6 GM/DL (3.2-5.2); ALT/SGPT 17 U/L (12-78); BILIRUBIN,TOTAL 0.7 MG/DL (0.2-1.0); BLOOD UREA NITROGEN 6 MG/DL (7-18); CALCIUM LEVEL 8.9 MG/DL (8.5-10.1); CARBON DIOXIDE LEVEL 29 MEQ/L (21-32); CHLORIDE LEVEL 102 MEQ/L (98-107); CREATININE FOR GFR 0.76 MG/DL (0.70-1.30); GLOMERULAR FILTRATION RATE > 60.0 (>56); GLUCOSE, FASTING 108 MG/DL (70-100); POTASSIUM SERUM 4.1 MEQ/L (3.5-5.1); SODIUM LEVEL 138 MEQ/L (136-145); TOTAL PROTEIN 6.7 GM/DL (6.4-8.2)
[2018-05-31 00:06] LABS: ZINC RBC 1348 ug/dL (878-1660)
== END ==
LOC: M SFHCLERA 16:30
PROVIDERS: ATTEND Dermatology
DX: L53.9 Erythematous condition, unspecified (principal)

== ENCOUNTER 2018-07-10 17:13 | Emergency (ER) | payer BC ==
[~2018-07-10] VITALS: Ht 170.2 cm; Wt 77.3 kg
[~2018-07-10 17:13] MED LIST changes: +HYDR-3715 PO; -NORCOTAB PO
[2018-07-10 18:23] LABS: HEMATOCRIT 43.2 % (42.0-52.0); HEMOGLOBIN 14.1 g/dl (13.5-17.5); MEAN CORPUSCULAR HEMOGLOBIN 30.8 pg (27.0-33.0); MEAN CORPUSCULAR HGB CONC 32.6 g/dl (32.0-36.5); MEAN CORPUSCULAR VOLUME 94.3 fl (80.0-96.0); PLATELET COUNT, AUTOMATED 408 10^3/uL (150-450); RED BLOOD COUNT 4.58 10^6/uL (4.30-6.10); WHITE BLOOD COUNT 14.6 10^3/uL (4.0-10.0)
[2018-07-10 18:33] VITALS: BP 133/75
[2018-07-10 18:54] LABS: ACETAMINOPHEN LEVEL < 2.0 UG/ML (10.0-30.0); ALBUMIN 2.9 GM/DL (3.2-5.2); ALT/SGPT 21 U/L (12-78); BILIRUBIN,DIRECT < 0.1 MG/DL (0.0-0.2); BILIRUBIN,TOTAL 0.2 MG/DL (0.2-1.0); BLOOD UREA NITROGEN 4 MG/DL (7-18); CALCIUM LEVEL 8.5 MG/DL (8.5-10.1); CARBON DIOXIDE LEVEL 27 MEQ/L (21-32); CHLORIDE LEVEL 106 MEQ/L (98-107); ETHYL ALCOHOL (ETHANOL) < 0.003 % (0.000-0.010); GLOMERULAR FILTRATION RATE > 60.0 (>56); GLUCOSE, FASTING 93 MG/DL (70-100); POTASSIUM SERUM 4.3 MEQ/L (3.5-5.1); SALICYLATE LEVEL 2.9 MG/DL (5.0-30.0); SODIUM LEVEL 142 MEQ/L (136-145); TOTAL PROTEIN 5.7 GM/DL (6.4-8.2)
[2018-07-10 20:31] LABS: AMPHETAMINES LEVEL URINE NEGATIVE (NEGATIVE); BARBITURATES URINE NEGATIVE (NEGATIVE); BENZODIAZEPINES URINE NEGATIVE (NEGATIVE); CANNABINOIDS URINE POSITIVE (NEGATIVE); COCAINE METABOLITE URINE NEGATIVE (NEGATIVE); METHADONE URINE NEGATIVE (NEGATIVE); OPIATES URINE NEGATIVE (NEGATIVE); PHENCYCLIDINE URINE NEGATIVE (NEGATIVE)
== END 2018-07-10 20:59 | disposition home or self-care (01) ==
LOC: M ED 17:13
DX: F43.0 Acute stress reaction (principal); L98.9 Disorder of the skin and subcutaneous tissue, unspecified; I51.9 Heart disease, unspecified; F17.200 Nicotine dependence, unspecified, uncomplicated; F10.11 Alcohol abuse, in remission; Z88.8 Allergy status to other drugs, medicaments and biological substances
CPT/HCPCS: 36415; 80048; 80076; 80307; 84443; 85027; 99284; G0480

== ENCOUNTER → 2018-07-18 | Outpatient (REF) | payer BC ==
[~2018-07-18] MED LIST changes: -HYDR-3715 PO; +NORCOTAB PO
[2018-07-18 12:35] LABS: IMMUNOGLOBULIN E 84.4 IU/ML (<100); IMMUNOGLOBULIN M 22.7 MG/DL (40-230)
[2018-07-19 16:40] LABS: % CD3+ LYMPHS 79.3 % (57.5-86.2); % CD4+ LYMPHS 67.2 % (30.8-58.5); % NATURAL KILLER (CD56) 8.4 % (1.4-19.4); ABS NATURAL KILLER (CD56) CELL 126 /uL (24-406); ABSOLUTE CD3 1190 /uL (622-2402); ABSOLUTE CD4 HELPER 1008 /uL (359-1519); ABSOLUTE CD8 SUPPRESSOR 180 /uL (109-897); BASOPHILS 1 % (Not Estab.); BASOPHILS ABSOLUTE 0.1 x10E3/uL (0.0-0.2); EOSINOPHILS 10 % (Not Estab.); EOSINOPHILS ABSOLUTE 0.9 x10E3/uL (0.0-0.4); HCT 40.8 % (37.5-51.0); LYMPHOCYTES 17 % (Not Estab.); LYMPHOCYTES ABSOLUTE 1.5 x10E3/uL (0.7-3.1); MCH 29.9 pg (26.6-33.0); MCHC 31.9 g/dL (31.5-35.7); MCV 94 fL (79-97); MONOCYTES 7 % (Not Estab.); MONOCYTES ABSOLUTE 0.6 x10E3/uL (0.1-0.9); NEUTROPHILS 65 % (Not Estab.); NEUTROPHILS ABSOLUTE 5.5 x10E3/uL (1.4-7.0); PLT 401 x10E3/uL (150-379); RBC 4.35 x10E6/uL (4.14-5.80); WBC 8.6 x10E3/uL (3.4-10.8)
[2018-07-21 14:14] LABS: IMMUNOGLOBULIN D <1.34 mg/dL (<14.11)
== END ==
LOC: M SFHCPLAZ 08:21
PROVIDERS: ATTEND Dermatology
DX: A49.02 Methicillin resistant Staphylococcus aureus infection, unspecified site (principal)

== ENCOUNTER → 2018-07-25 | Outpatient (REF) | payer BC ==
[~2018-07-25] MED LIST changes: +HYDR-3715 PO; -NORCOTAB PO
[2018-07-25 12:01] LABS: BASO # 0.1 10^3/uL (0.0-0.2); BASO % 0.5 % (0.0-1.0); EOS # 1.4 10^3/uL (0.0-0.50); EOS % 11.2 % (0.0-3.0); HEMATOCRIT 42.7 % (42.0-52.0); LYMPH # 1.2 10^3/uL (1.5-4.5); LYMPH % 9.7 % (24.0-44.0); MEAN CORPUSCULAR HGB CONC 32.8 g/dl (32.0-36.5); MEAN CORPUSCULAR VOLUME 94.7 fl (80.0-96.0); MONO # 0.8 10^3/uL (0.0-0.8); MONO % 6.4 % (0.0-5.0); NEUTROPHILS # 9.2 10^3/uL (1.8-7.7); NEUTROPHILS % 71.7 % (36.0-66.0); PLATELET COUNT, AUTOMATED 352 10^3/uL (150-450); RED BLOOD COUNT 4.51 10^6/uL (4.30-6.10); WHITE BLOOD COUNT 12.8 10^3/uL (4.0-10.0)
[2018-07-25 12:18] LABS: ALBUMIN 3.2 GM/DL (3.2-5.2); ALT/SGPT 31 U/L (12-78); BILIRUBIN,TOTAL 0.3 MG/DL (0.2-1.0); BLOOD UREA NITROGEN 6 MG/DL (7-18); CALCIUM LEVEL 8.8 MG/DL (8.5-10.1); CARBON DIOXIDE LEVEL 28 MEQ/L (21-32); CHLORIDE LEVEL 107 MEQ/L (98-107); CREATININE FOR GFR 0.62 MG/DL (0.70-1.30); GLOMERULAR FILTRATION RATE > 60.0 (>56); GLUCOSE, FASTING 90 MG/DL (70-100); POTASSIUM SERUM 4.2 MEQ/L (3.5-5.1); SODIUM LEVEL 143 MEQ/L (136-145); TOTAL PROTEIN 5.7 GM/DL (6.4-8.2)
== END ==
LOC: M SFHCPLAZ 08:38
PROVIDERS: ATTEND Dermatology
DX: Z51.81 Encounter for therapeutic drug level monitoring (principal)

== ENCOUNTER → 2018-08-08 | Outpatient (REF) | payer BC ==
[2018-08-08 12:20] LABS: HEMATOCRIT 42.7 % (42.0-52.0); HEMOGLOBIN 13.8 g/dl (13.5-17.5); MEAN CORPUSCULAR HEMOGLOBIN 30.8 pg (27.0-33.0); MEAN CORPUSCULAR HGB CONC 32.3 g/dl (32.0-36.5); MEAN CORPUSCULAR VOLUME 95.3 fl (80.0-96.0); PLATELET COUNT, AUTOMATED 381 10^3/uL (150-450); RED BLOOD COUNT 4.48 10^6/uL (4.30-6.10); WHITE BLOOD COUNT 10.1 10^3/uL (4.0-10.0)
[2018-08-08 13:39] LABS: ALBUMIN 3.2 GM/DL (3.2-5.2); ALT/SGPT 20 U/L (12-78); BILIRUBIN,DIRECT < 0.1 MG/DL (0.0-0.2); BILIRUBIN,TOTAL 0.3 MG/DL (0.2-1.0)
== END ==
LOC: M SFHCPLAZ 08:50
PROVIDERS: ATTEND Dermatology
DX: Z51.81 Encounter for therapeutic drug level monitoring (principal)

== ENCOUNTER → 2018-10-07 | Outpatient (CLI) | payer BC ==
[2018-10-07 20:19] LABS: BASO % 0.7 % (0.0-1.0); EOS # 0.5 10^3/uL (0.0-0.50); EOS % 8.2 % (0.0-3.0); HEMATOCRIT 43.7 % (42.0-52.0); HEMOGLOBIN 14.4 g/dl (13.5-17.5); LYMPH # 0.6 10^3/uL (1.5-4.5); LYMPH % 11.2 % (24.0-44.0); MEAN CORPUSCULAR HEMOGLOBIN 33.1 pg (27.0-33.0); MEAN CORPUSCULAR VOLUME 100.5 fl (80.0-96.0); MONO # 0.7 10^3/uL (0.0-0.8); MONO % 12.3 % (0.0-5.0); NEUTROPHILS # 3.8 10^3/uL (1.8-7.7); NEUTROPHILS % 67.2 % (36.0-66.0); PLATELET COUNT, AUTOMATED 213 10^3/uL (150-450); RED BLOOD COUNT 4.35 10^6/uL (4.30-6.10); WHITE BLOOD COUNT 5.7 10^3/uL (4.0-10.0)
[2018-10-07 20:41] LABS: ALBUMIN 2.9 GM/DL (3.2-5.2); ALT/SGPT 36 U/L (12-78); BILIRUBIN,TOTAL 0.2 MG/DL (0.2-1.0); BLOOD UREA NITROGEN 5 MG/DL (7-18); CALCIUM LEVEL 8.4 MG/DL (8.5-10.1); CARBON DIOXIDE LEVEL 27 MEQ/L (21-32); CHLORIDE LEVEL 107 MEQ/L (98-107); CREATININE FOR GFR 0.47 MG/DL (0.70-1.30); GLOMERULAR FILTRATION RATE > 60.0 (>56); GLUCOSE, FASTING 92 MG/DL (70-100); POTASSIUM SERUM 3.7 MEQ/L (3.5-5.1); RHEUMATOID FACTOR QUANT < 10.0 IU/ML (<15.0); SODIUM LEVEL 139 MEQ/L (136-145); TOTAL PROTEIN 6.8 GM/DL (6.4-8.2)
[2018-10-07 21:05] LABS: INR 1.06; PROTHROMBIN TIME 13.9 SECONDS (12.1-14.4)
[2018-10-14 00:06] LABS: ANA (HEP2) Negative (.); CYCLIC CITRULLINATED PEPTIDE 6 units (0-19); HLA-B27 Negative (.)
== END ==
LOC: M WUC 17:34
PROVIDERS: ATTEND Internal Medicine Infectious Disease
DX: L53.9 Erythematous condition, unspecified (principal); M25.50 Pain in unspecified joint; N62 Hypertrophy of breast

== ENCOUNTER → 2018-11-11 | Outpatient (REF) | payer BC | LOC: M SFHCPLAZ 15:10 | PROVIDERS: ATTEND Dermatology | DX: Z51.81 Encounter for therapeutic drug level monitoring (principal) ==

== ENCOUNTER → 2018-11-25 | Outpatient (REF) | payer BC ==
[2018-11-25 13:08] LABS: HEMATOCRIT 49.4 % (42.0-52.0); HEMOGLOBIN 16.4 g/dl (13.5-17.5); MEAN CORPUSCULAR HEMOGLOBIN 34.2 pg (27.0-33.0); MEAN CORPUSCULAR HGB CONC 33.2 g/dl (32.0-36.5); MEAN CORPUSCULAR VOLUME 103.1 fl (80.0-96.0); PLATELET COUNT, AUTOMATED 215 10^3/uL (150-450); RED BLOOD COUNT 4.79 10^6/uL (4.30-6.10); WHITE BLOOD COUNT 7.7 10^3/uL (4.0-10.0)
[2018-11-25 13:11] LABS: ALBUMIN 3.6 GM/DL (3.2-5.2); ALT/SGPT 44 U/L (12-78); BILIRUBIN,TOTAL 0.5 MG/DL (0.2-1.0); BLOOD UREA NITROGEN 13 MG/DL (7-18); CALCIUM LEVEL 9.6 MG/DL (8.5-10.1); CARBON DIOXIDE LEVEL 29 MEQ/L (21-32); CHLORIDE LEVEL 105 MEQ/L (98-107); CHOLESTEROL LEVEL 228 MG/DL (<200); CREATININE FOR GFR 0.86 MG/DL (0.70-1.30); FREE T4 0.73 NG/DL (0.76-1.46); GLOMERULAR FILTRATION RATE > 60.0 (>56); GLUCOSE, FASTING 113 MG/DL (70-100); HDL CHOLESTEROL 100 MG/DL (>40); LDL CHOLESTEROL 109 MG/DL (<100); NON-HDL-C 128 MG/DL; POTASSIUM SERUM 4.2 MEQ/L (3.5-5.1); SODIUM LEVEL 139 MEQ/L (136-145); TOTAL PROTEIN 7.2 GM/DL (6.4-8.2); TRIGLYCERIDES LEVEL 93 MG/DL (<150)
== END ==
LOC: M SFHCPLAZ 08:59
PROVIDERS: ATTEND Dermatology
DX: Z51.81 Encounter for therapeutic drug level monitoring (principal)

== ENCOUNTER 2018-12-24 07:00 | Outpatient (CLI) | payer BC ==
[~2018-12-24] VITALS: Ht 170.2 cm; Wt 70.0 kg
[2018-12-24 07:00] VITALS: BP 109/61
[~2018-12-24 07:00] MED LIST changes: +COSYNTROPIN 0.25 MG/ML VIAL (J0834 PER 0.25MG) IV ONE; -DIPH25CA; +DIPH25CA32
[2018-12-24] MEDS ORDERED: BEXA75CA PO (07:56)
[2018-12-24] MEDS ORDERED: SYNT100T PO (07:57)
[2018-12-24 09:30] VITALS: BP 110/66
[2018-12-24] MEDS ORDERED: LOVA1CAP17 PO (15:53)
== END 2018-12-24 09:30 | disposition home or self-care (01) ==
LOC: M INFU 07:00
PROVIDERS: ATTEND Dermatology
DX: L53.9 Erythematous condition, unspecified (principal)
CPT/HCPCS: 36415; 82533; 96374; J0834

== ENCOUNTER → 2019-01-05 | Outpatient (REF) | payer BC ==
[~2019-01-05] MED LIST changes: +BEXA75CA PO; -COSYNTROPIN 0.25 MG/ML VIAL (J0834 PER 0.25MG) IV ONE; +LOVA1CAP17 PO; +SYNT100T PO
[2019-01-05 11:33] LABS: HEMATOCRIT 46.5 % (42.0-52.0); HEMOGLOBIN 15.5 g/dl (13.5-17.5); MEAN CORPUSCULAR HEMOGLOBIN 34.4 pg (27.0-33.0); MEAN CORPUSCULAR HGB CONC 33.3 g/dl (32.0-36.5); MEAN CORPUSCULAR VOLUME 103.3 fl (80.0-96.0); PLATELET COUNT, AUTOMATED 386 10^3/uL (150-450); WHITE BLOOD COUNT 8.7 10^3/uL (4.0-10.0)
[2019-01-05 12:25] LABS: ALBUMIN 2.9 GM/DL (3.2-5.2); ALT/SGPT 17 U/L (12-78); BILIRUBIN,TOTAL 0.2 MG/DL (0.2-1.0); BLOOD UREA NITROGEN 8 MG/DL (7-18); CALCIUM LEVEL 9.4 MG/DL (8.5-10.1); CARBON DIOXIDE LEVEL 26 MEQ/L (21-32); CHLORIDE LEVEL 108 MEQ/L (98-107); CHOLESTEROL LEVEL 232 MG/DL (<200); CREATININE FOR GFR 0.63 MG/DL (0.70-1.30); FREE T4 0.62 NG/DL (0.76-1.46); GLOMERULAR FILTRATION RATE > 60.0 (>56); GLUCOSE, FASTING 80 MG/DL (70-100); HDL CHOLESTEROL 37 MG/DL (>40); LDL CHOLESTEROL 169 MG/DL (<100); NON-HDL-C 195 MG/DL; POTASSIUM SERUM 4.6 MEQ/L (3.5-5.1); SODIUM LEVEL 141 MEQ/L (136-145); THYROID STIMULATING HORMONE 0.854 uIU/ML (0.358-3.740); TOTAL PROTEIN 6.7 GM/DL (6.4-8.2); TRIGLYCERIDES LEVEL 129 MG/DL (<150)
== END ==
LOC: M SFHCPLAZ 08:37
PROVIDERS: ATTEND Dermatology
DX: Z51.81 Encounter for therapeutic drug level monitoring (principal)

== ENCOUNTER → 2019-01-07 | Outpatient (REF) | payer BC | LOC: M SFHCPLAZ 10:19 | PROVIDERS: ATTEND Dermatology | DX: L53.9 Erythematous condition, unspecified (principal) ==

== ENCOUNTER → 2019-01-19 | Outpatient (RCR) | payer BC | LOC: M PT 01-06 12:39 | PROVIDERS: ATTEND Dermatology | DX: L53.9 Erythematous condition, unspecified (principal) ==

== ENCOUNTER → 2019-02-16 | Outpatient (REF) | payer BC ==
[2019-02-16 12:38] LABS: HEMATOCRIT 43.5 % (42.0-52.0); HEMOGLOBIN 14.7 g/dl (13.5-17.5); MEAN CORPUSCULAR HEMOGLOBIN 35.2 pg (27.0-33.0); MEAN CORPUSCULAR HGB CONC 33.8 g/dl (32.0-36.5); MEAN CORPUSCULAR VOLUME 104.1 fl (80.0-96.0); PLATELET COUNT, AUTOMATED 224 10^3/uL (150-450); RED BLOOD COUNT 4.18 10^6/uL (4.30-6.10)
[2019-02-16 12:57] LABS: ALBUMIN 3.4 GM/DL (3.2-5.2); ALT/SGPT 19 U/L (12-78); BILIRUBIN,TOTAL 0.4 MG/DL (0.2-1.0); BLOOD UREA NITROGEN 5 MG/DL (7-18); CALCIUM LEVEL 8.6 MG/DL (8.5-10.1); CARBON DIOXIDE LEVEL 28 MEQ/L (21-32); CHLORIDE LEVEL 108 MEQ/L (98-107); CHOLESTEROL LEVEL 195 MG/DL (<200); CHOLESTEROL RISK RATIO 2.671 (<5); CREATININE FOR GFR 0.54 MG/DL (0.70-1.30); GLOMERULAR FILTRATION RATE > 60.0 (>56); GLUCOSE, FASTING 69 MG/DL (70-100); HDL CHOLESTEROL 73 MG/DL (>40); LDL CHOLESTEROL 107 MG/DL (<100); NON-HDL-C 122 MG/DL; POTASSIUM SERUM 4.4 MEQ/L (3.5-5.1); SODIUM LEVEL 141 MEQ/L (136-145); TOTAL PROTEIN 7.2 GM/DL (6.4-8.2); TRIGLYCERIDES LEVEL 75 MG/DL (<150)
== END ==
LOC: M SFHCPLAZ 09:03
PROVIDERS: ATTEND Dermatology
DX: Z79.899 Other long term (current) drug therapy (principal)

== ENCOUNTER → 2019-04-01 | Outpatient (CLI) | payer BC ==
[2019-04-01 20:16] LABS: HEMATOCRIT 46.6 % (42.0-52.0); HEMOGLOBIN 14.9 g/dl (13.5-17.5); MEAN CORPUSCULAR HEMOGLOBIN 33.9 pg (27.0-33.0); MEAN CORPUSCULAR VOLUME 105.9 fl (80.0-96.0); PLATELET COUNT, AUTOMATED 293 10^3/uL (150-450); WHITE BLOOD COUNT 4.4 10^3/uL (4.0-10.0)
[2019-04-01 22:17] LABS: ALT/SGPT 16 U/L (12-78); BILIRUBIN,TOTAL 0.3 MG/DL (0.2-1.0); BLOOD UREA NITROGEN 8 MG/DL (7-18); CARBON DIOXIDE LEVEL 28 MEQ/L (21-32); CHLORIDE LEVEL 107 MEQ/L (98-107); CREATININE FOR GFR 0.79 MG/DL (0.70-1.30); GLOMERULAR FILTRATION RATE > 60.0 (>56); GLUCOSE, FASTING 85 MG/DL (70-100); POTASSIUM SERUM 4.3 MEQ/L (3.5-5.1); SODIUM LEVEL 140 MEQ/L (136-145)
[2019-04-01 22:18] LABS: ALBUMIN 3.3 GM/DL (3.2-5.2); CHOLESTEROL LEVEL 215 MG/DL (<200); CHOLESTEROL RISK RATIO 4.479 (<5); FREE T4 0.88 NG/DL (0.76-1.46); HDL CHOLESTEROL 48 MG/DL (>40); LDL CHOLESTEROL 146.2 MG/DL (<100); NON-HDL-C 167 MG/DL; TOTAL PROTEIN 7.6 GM/DL (6.4-8.2); TRIGLYCERIDES LEVEL 104 MG/DL (<150)
== END ==
LOC: M WUC 16:08
PROVIDERS: ATTEND Dermatology
DX: Z51.81 Encounter for therapeutic drug level monitoring (principal); Z79.899 Other long term (current) drug therapy

== ENCOUNTER → 2019-06-29 | Outpatient (CLI) | payer BC ==
[2019-06-29 20:12] LABS: HEMATOCRIT 41.9 % (42.0-52.0); HEMOGLOBIN 14.1 g/dl (13.5-17.5); MEAN CORPUSCULAR HEMOGLOBIN 34.6 pg (27.0-33.0); MEAN CORPUSCULAR HGB CONC 33.7 g/dl (32.0-36.5); MEAN CORPUSCULAR VOLUME 102.7 fl (80.0-96.0); PLATELET COUNT, AUTOMATED 264 10^3/uL (150-450); RED BLOOD COUNT 4.08 10^6/uL (4.30-6.10); WHITE BLOOD COUNT 4.6 10^3/uL (4.0-10.0)
[2019-06-29 20:52] LABS: ALBUMIN 3.5 GM/DL (3.2-5.2); BILIRUBIN,DIRECT 0.1 MG/DL (0.0-0.2); BILIRUBIN,TOTAL 0.3 MG/DL (0.2-1.0); CHOLESTEROL RISK RATIO 5.261 (<5); FREE T4 0.84 NG/DL (0.76-1.46); THYROID STIMULATING HORMONE 1.11 uIU/ML (0.358-3.740); TOTAL PROTEIN 7.5 GM/DL (6.4-8.2)
== END ==
LOC: M WUC 15:27
PROVIDERS: ATTEND Dermatology
DX: Z51.81 Encounter for therapeutic drug level monitoring (principal)

== ENCOUNTER → 2020-02-10 | Outpatient (REF) | payer BC ==
[~2020-02-10] MED LIST changes: -ASPI81TA85 PO; +ASPI81TA86 PO
== END ==
LOC: M SFHCPLAZ 12:02
PROVIDERS: ATTEND Internal Medicine
DX: Z51.81 Encounter for therapeutic drug level monitoring (principal); Z79.890 Hormone replacement therapy

== ENCOUNTER → 2020-03-01 | Outpatient (CLI) | payer BC ==
--- NOTE | 2020-03-02 07:17 | REP ---
INDICATION: CIGARETTE NICOTINE DEPENDENCE COMPARISON: 11/13/2018 TECHNIQUE: Axial noncontrast images from the thoracic inlet to the upper abdomen using low-dose lung screening technique (LDCT). FINDINGS: The bilateral lung lowry are well aerated and essentially clear. Very minimal age-related interstitial changes are appreciated along with a small 2 mm density in the deep right sulcus essentially unchanged compared to 2019. No further suspicious consolidation, nodule, or mass. No effusion. No pneumothorax. Tracheobronchial tree is patent. IMPRESSION: Lung rads category 2. Management recommendations include continued annual low-dose surveillance. <Electronically signed by Kiko Merino > 03/02/20 0730
== END ==
LOC: M RAD 10:19
PROVIDERS: ATTEND Internal Medicine
DX: F17.219 Nicotine dependence, cigarettes, with unspecified nicotine-induced disorders (principal)

== ENCOUNTER → 2020-08-10 | Outpatient (REF) | payer BC ==
[~2020-08-10] MED LIST changes: +CIPR7.5D5 AD; -CIPRODEX AD; -CLIN150C14 PO; +CLIN150C15 PO
[2020-08-10 11:57] LABS: BASO % 0.7 % (0.0-1.0); EOS # 0.2 10^3/uL (0.0-0.5); EOS % 2.8 % (0.0-3.0); HEMATOCRIT 45.3 % (42.0-52.0); HEMOGLOBIN 14.8 g/dl (13.5-17.5); LYMPH # 1.2 10^3/uL (1.5-5.0); LYMPH % 19.3 % (24.0-44.0); MEAN CORPUSCULAR HEMOGLOBIN 33.3 pg (27.0-33.0); MEAN CORPUSCULAR HGB CONC 32.7 g/dl (32.0-36.5); MEAN CORPUSCULAR VOLUME 101.8 fl (80.0-96.0); MONO # 0.7 10^3/uL (0.0-0.8); MONO % 11.4 % (2.0-8.0); NEUTROPHILS % 65.5 % (36.0-66.0); PLATELET COUNT, AUTOMATED 270 10^3/uL (150-450); RED BLOOD COUNT 4.45 10^6/uL (4.30-6.10); WHITE BLOOD COUNT 6.1 10^3/uL (4.0-10.0)
[2020-08-10 12:35] LABS: ALBUMIN 3.8 GM/DL (3.2-5.2); ALT/SGPT 16 U/L (12-78); BILIRUBIN,TOTAL 0.3 MG/DL (0.2-1.0); BLOOD UREA NITROGEN 12 MG/DL (7-18); CALCIUM LEVEL 9.1 MG/DL (8.5-10.1); CARBON DIOXIDE LEVEL 28 MEQ/L (21-32); CHLORIDE LEVEL 110 MEQ/L (98-107); CHOLESTEROL LEVEL 202 MG/DL (<200); CREATININE FOR GFR 0.71 MG/DL (0.70-1.30); GLOMERULAR FILTRATION RATE > 60.0 (>56); GLUCOSE, FASTING 86 MG/DL (70-100); HDL CHOLESTEROL 44 MG/DL (>40); LDL CHOLESTEROL 145 MG/DL (<100); NON-HDL-C 158 MG/DL; POTASSIUM SERUM 4.6 MEQ/L (3.5-5.1); SODIUM LEVEL 141 MEQ/L (136-145); TOTAL PROTEIN 7.6 GM/DL (6.4-8.2); TRIGLYCERIDES LEVEL 67 MG/DL (<150)
== END ==
LOC: M SFHCPLAZ 09:36
PROVIDERS: ATTEND Internal Medicine
DX: C84.A9 Cutaneous T-cell lymphoma, unspecified, extranodal and solid organ sites (principal); K76.0 Fatty (change of) liver, not elsewhere classified; Z79.890 Hormone replacement therapy; Z12.5 Encounter for screening for malignant neoplasm of prostate

== ENCOUNTER → 2020-08-11 | Outpatient (CLI) | payer BC ==
[~2020-08-11] MED LIST changes: +ISOVUE-300 61% 50ML VIAL As Ordered ONE; +LIDOCAINE 1% MDV 20ML VIAL As Ordered ONE; +TRIAMCINOLONE ACETONIDE SUSP 40 MG/ML VIAL (J3301) As Ordered ONE
--- NOTE | 2020-08-11 14:57 | REP ---
INDICATION: OA RT HIP. COMPARISON: None. TECHNIQUE: The procedure was performed under the direct supervision of Dr. Stern. The benefits and risks including but not limited to pain infection and bleeding and anaphylaxis were explained to the patient and informed consent was obtained. The right femoral neck was localized using fluoroscopic guidance. The skin was prepped and draped in a sterile fashion. 1% lidocaine was used as a local anesthetic. Using fluoroscopic guidance, and last image hold technology, a 22-gauge spinal needle was inserted and advanced to the femoral neck. 0.5 ml of Isovue-300 was injected to verify placement. Six ml of a solution containing 5 ml of 1% Xylocaine and 1 mg was injected. The needle was then removed. The patient tolerated the procedure well and there were no immediate complications. Less than 6 seconds of fluoro time was utilized for this procedure. FINDINGS: None IMPRESSION: Fluoro guidance for right hip injection. <Electronically signed by Art Quick > 08/11/20 0813 <Electronically signed by Marques Stern > 08/11/20 1623
== END ==
LOC: M RADPRO 13:24
PROVIDERS: ATTEND Physician Assistant
DX: M16.11 Unilateral primary osteoarthritis, right hip (principal)
CPT/HCPCS: 20610; 77002; J3301; Q9967

== ENCOUNTER → 2020-08-20 | Outpatient (CLI) | payer BC ==
[~2020-08-20] MED LIST changes: -ISOVUE-300 61% 50ML VIAL As Ordered ONE; -LIDOCAINE 1% MDV 20ML VIAL As Ordered ONE; -TRIAMCINOLONE ACETONIDE SUSP 40 MG/ML VIAL (J3301) As Ordered ONE
--- NOTE | 2020-08-21 16:25 | REPVR ---
PROCEDURE INFORMATION: Exam: MR Lumbar Spine Without Contrast Exam date and time: 08/20/2020 11:54 AM Age: 54 years old Clinical indication: Low back pain; Patient HX: Lbp; Additional info: Ddd lumbar ? hnp vs stenosis TECHNIQUE: Imaging protocol: Multiplanar magnetic resonance images of the lumbar spine without intravenous contrast. COMPARISON: PT PET/CT Skull/mid thigh 07/16/2017 9:50 AM FINDINGS: Vertebral body heights are maintained. No abnormal marrow signal. No cord compression. No abnormal cord signal. Conus medullaris terminates at the L1 level. Paravertebral soft tissues are unremarkable. L1-L2: No significant canal or foraminal narrowing. L2-L3: No significant canal or foraminal narrowing. L3-L4: Broad-based disc bulge and facet hypertrophy cause mild canal narrowing and mild right foraminal narrowing. L4-L5: Broad-based disc bulge and facet hypertrophy cause moderate canal narrowing with moderate right and mild left foraminal narrowing. L5-S1: Broad-based disc bulge and facet hypertrophy cause mild canal narrowing with mild right and [id number] left foraminal narrowing. IMPRESSION: Multilevel spondylotic changes of the lumbar spine, as detailed above. Electronically signed by: Yannick Rosas On 08/21/2020 16:24:45 PM
== END ==
LOC: M RAD 10:51
PROVIDERS: ATTEND Physician Assistant
DX: M51.36 Other intervertebral disc degeneration, lumbar region (principal); M47.816 Spondylosis without myelopathy or radiculopathy, lumbar region; M51.26 Other intervertebral disc displacement, lumbar region

== ENCOUNTER → 2020-09-12 | Outpatient (REF) | payer BC ==
[~2020-09-12] MED LIST changes: +BACTDSTA PO; -SULF1TAB93 PO
== END ==
LOC: M LAB REF 20:20
PROVIDERS: ATTEND Physician Assistant
DX: L02.01 Cutaneous abscess of face (principal)

== ENCOUNTER → 2021-07-24 | Outpatient (CLI) | payer BC ==
[~2021-07-24] MED LIST changes: -CLIN150C15 PO; +CLIN150C17 PO; +NEOM28OI TOP; -TRIPOIN5 TOP
[2021-07-24 11:05] LABS: BASO % 0.6 % (0.0-1.0); EOS # 0.2 10^3/uL (0.0-0.5); EOS % 2.3 % (0.0-3.0); HEMATOCRIT 48.8 % (42.0-52.0); HEMOGLOBIN 16.2 g/dl (13.5-17.5); LYMPH # 1.6 10^3/uL (1.5-5.0); LYMPH % 22.7 % (24.0-44.0); MEAN CORPUSCULAR HEMOGLOBIN 32.7 pg (27.0-33.0); MEAN CORPUSCULAR HGB CONC 33.2 g/dl (32.0-36.5); MEAN CORPUSCULAR VOLUME 98.4 fl (80.0-96.0); MONO # 0.7 10^3/uL (0.0-0.8); MONO % 9.9 % (2.0-8.0); NEUTROPHILS # 4.5 10^3/uL (1.5-8.5); NEUTROPHILS % 64.2 % (36.0-66.0); PLATELET COUNT, AUTOMATED 231 10^3/uL (150-450); RED BLOOD COUNT 4.96 10^6/uL (4.30-6.10)
[2021-07-24 11:47] LABS: ALBUMIN 3.8 GM/DL (3.2-5.2); ALT/SGPT 17 U/L (12-78); BILIRUBIN,TOTAL 0.3 MG/DL (0.2-1.0); BLOOD UREA NITROGEN 15 MG/DL (7-18); CALCIUM LEVEL 8.9 MG/DL (8.5-10.1); CARBON DIOXIDE LEVEL 30 MEQ/L (21-32); CHLORIDE LEVEL 109 MEQ/L (98-107); CHOLESTEROL LEVEL 200 MG/DL (<200); CHOLESTEROL RISK RATIO 4.878 (<5); CREATININE FOR GFR 0.79 MG/DL (0.70-1.30); GLOMERULAR FILTRATION RATE > 60.0 (>56); GLUCOSE, FASTING 90 MG/DL (70-100); HDL CHOLESTEROL 41 MG/DL (>40); LDL CHOLESTEROL 144 MG/DL (<100); NON-HDL-C 159 MG/DL; POTASSIUM SERUM 4.9 MEQ/L (3.5-5.1); SODIUM LEVEL 140 MEQ/L (136-145); TOTAL PROTEIN 6.8 GM/DL (6.4-8.2); TRIGLYCERIDES LEVEL 74 MG/DL (<150)
== END ==
LOC: M PLALAB 08:24
PROVIDERS: ATTEND Internal Medicine
DX: Z00.00 Encounter for general adult medical examination without abnormal findings (principal); Z12.5 Encounter for screening for malignant neoplasm of prostate; C84.A9 Cutaneous T-cell lymphoma, unspecified, extranodal and solid organ sites

== ENCOUNTER → 2021-08-01 | Outpatient (CLI) | payer BC | LOC: M RAD 16:57 | PROVIDERS: ATTEND Internal Medicine | DX: Z12.2 Encounter for screening for malignant neoplasm of respiratory organs (principal); F17.210 Nicotine dependence, cigarettes, uncomplicated; R91.1 Solitary pulmonary nodule; J47.9 Bronchiectasis, uncomplicated ==

== ENCOUNTER → 2022-07-27 | Outpatient (CLI) | payer BC ==
[~2022-07-27] MED LIST changes: +DIPH-435; -DIPH25CA32
[2022-07-27 19:17] LABS: HEMOGLOBIN 15.5 g/dl (13.5-17.5); MEAN CORPUSCULAR HEMOGLOBIN 33.3 pg (27.0-33.0); MEAN CORPUSCULAR VOLUME 100.9 fl (80.0-96.0); PLATELET COUNT, AUTOMATED 227 10^3/uL (150-450); RED BLOOD COUNT 4.66 10^6/uL (4.30-6.10); WHITE BLOOD COUNT 6.5 10^3/uL (4.0-10.0)
[2022-07-27 19:49] LABS: C REACTIVE PROTEIN QUANTITATIV < 0.40 MG/DL (<1.0); MALB URINE SIEMENS < 3.0 MG/L
[2022-07-27 19:51] LABS: ALBUMIN 3.9 G/DL (3.2-5.2); ALKALINE PHOSPHATASE 65 U/L (46-116); ALT/SGPT < 9 U/L (7.0-40); AST/SGOT 12 U/L (<34); BILIRUBIN,TOTAL 0.6 MG/DL (0.3-1.2); BLOOD UREA NITROGEN 7 MG/DL (9-23); CALCIUM LEVEL 8.5 MG/DL (8.5-10.1); CARBON DIOXIDE LEVEL 28 MMOL/L (20-31); CHLORIDE LEVEL 105 MMOL/L (98-107); CHOLESTEROL LEVEL 201 MG/DL (<200); CHOLESTEROL RISK RATIO 3.94 (<5); CREATININE FOR GFR 0.73 MG/DL (0.70-1.30); GLOMERULAR FILTRATION RATE > 60.0 (>56); GLUCOSE, FASTING 81 MG/DL (60-100); POTASSIUM SERUM 3.9 MMOL/L (3.5-5.1); SODIUM LEVEL 135 MMOL/L (136-145); TOTAL PROTEIN 6.5 G/DL (5.7-8.2); TRIGLYCERIDES LEVEL 70 MG/DL (<150)
[2022-07-27 19:52] LABS: THYROID STIMULATING HORMONE 1.371 uIU/ML (0.55-4.78)
[2022-07-27 19:53] LABS: FREE T4 0.83 NG/DL (0.89-1.76); VITAMIN B12 LEVEL 387 PG/ML (211-911)
[2022-07-27 20:00] LABS: MAU/CREAT RATIO 1.2 MCG/MG (0.0-30.0)
[2022-07-27 20:15] LABS: HEMOGLOBIN A1c 4.9 % (4.0-6.0)
== END ==
LOC: M WUC 15:18
PROVIDERS: ATTEND Internal Medicine Hematology
DX: K76.0 Fatty (change of) liver, not elsewhere classified (principal)

== ENCOUNTER → 2022-08-30 | Outpatient (CLI) | payer BC | LOC: M RAD 06:33 | PROVIDERS: ATTEND Internal Medicine Hematology | DX: Z12.2 Encounter for screening for malignant neoplasm of respiratory organs (principal); F17.219 Nicotine dependence, cigarettes, with unspecified nicotine-induced disorders; I70.0 Atherosclerosis of aorta; I25.10 Atherosclerotic heart disease of native coronary artery without angina pectoris; J98.4 Other disorders of lung; M41.35 Thoracogenic scoliosis, thoracolumbar region; R91.1 Solitary pulmonary nodule ==

== ENCOUNTER → 2023-01-10 | Outpatient (CLI) | payer BC, OTHER ==
[~2023-01-10] MED LIST changes: +IBUP-1022 PO; +SOMA350T PO
== END ==
LOC: M RAD 07:43
PROVIDERS: ATTEND Orthopaedic Surgery
DX: M54.6 Pain in thoracic spine (principal)

== ENCOUNTER → 2023-06-24 | Outpatient (CLI) | payer OTHER, BC | LOC: M WUC 11:00 | PROVIDERS: ATTEND Physical Medicine & Rehabilitation | DX: M48.062 Spinal stenosis, lumbar region with neurogenic claudication (principal) ==

== ENCOUNTER → 2023-12-04 | Outpatient (CLI) | payer BC | LOC: M RAD 06:32 | PROVIDERS: ATTEND Internal Medicine Hematology | DX: Z12.2 Encounter for screening for malignant neoplasm of respiratory organs (principal); F17.219 Nicotine dependence, cigarettes, with unspecified nicotine-induced disorders; R91.8 Other nonspecific abnormal finding of lung field ==

== ENCOUNTER → 2024-06-11 | Outpatient (CLI) | payer BC ==
[2024-06-11 15:27] LABS: BLOOD UREA NITROGEN 7 MG/DL (9-23); CALCIUM LEVEL 9.6 MG/DL (8.5-10.1); CARBON DIOXIDE LEVEL 28 MMOL/L (20-31); CHLORIDE LEVEL 106 MMOL/L (98-107); CREATININE FOR GFR 0.63 MG/DL (0.70-1.30); GLOMERULAR FILTRATION RATE > 60.0 (>56); GLUCOSE, FASTING 82 MG/DL (60-100); POTASSIUM SERUM 4.5 MMOL/L (3.5-5.1); SODIUM LEVEL 142 MMOL/L (136-145)
[2024-06-11 17:41] LABS: ALBUMIN 3.1 G/DL (3.2-5.2); ALKALINE PHOSPHATASE 85 U/L (40-129); ALT/SGPT 22 U/L (7.0-40); AST/SGOT 12 U/L (<34); BILIRUBIN,TOTAL 0.4 MG/DL (0.3-1.2)
== END ==
LOC: M PLALAB 12:19
PROVIDERS: ATTEND Physician Assistant Medical
DX: B35.3 Tinea pedis (principal)

== ENCOUNTER → 2024-12-03 | Outpatient (CLI) | payer BC ==
[~2024-12-03] MED LIST changes: +CEFD1CAP9 PO; +GAVIPOW3 PO; +MIDO10TA3 PO; +ONDA-282 PO; +PERCOCET PO; +TRAN1DIS4 TOP
== END ==
LOC: M IRPRO 14:42
PROVIDERS: ATTEND Internal Medicine Hematology & Oncology
DX: C81.90 Hodgkin lymphoma, unspecified, unspecified site (principal)
CPT/HCPCS: 36569; C1751

== ENCOUNTER → 2024-12-16 | Outpatient (CLI) | payer BC ==
[~2024-12-16] MED LIST changes: -IBUP-1022 PO; +IBUP600T42 PO; +LIDO30CR18 TOP
[2024-12-16 08:51] VITALS: TEMP 97
[2024-12-16] MEDS: ceFAZolin SODIUM 2 GM in DEXTROSE 5% (D5W) ADV/MINI-BAG 50 ML IV ONE (09:48)
[2024-12-16] MEDS: NS (Normal Saline) 0.9% 1,000 ML IV SCH (09:48)
[2024-12-16] MEDS: MIDAZOLAM INJ 2 MG/2 ML VIAL IV PRN (09:53)
[2024-12-16] MEDS: LIDOCAINE 1% MDV 20 ML VIAL SC SCH (10:07)
[2024-12-16 11:00] VITALS: BP 119/76; O2SAT 99
== END ==
LOC: M IRPRO 08:34
PROVIDERS: ATTEND Internal Medicine Hematology & Oncology
DX: C81.90 Hodgkin lymphoma, unspecified, unspecified site (principal)
CPT/HCPCS: 36561; 99152; 99153; J0690; J1642; J2250; J3010

== ENCOUNTER → 2024-12-28 | Outpatient (POV) | payer BC, MEDICAID, SELFPAY ==
[~2024-12-28] VITALS: Ht 170.2 cm; Wt 62.3 kg
[2024-12-28 11:05] VITALS: BP 120/84; O2SAT 100
== END ==
LOC: M IRPOV 10:53
PROVIDERS: ATTEND Registered Nurse School
DX: Z45.2 Encounter for adjustment and management of vascular access device (principal); Z88.6 Allergy status to analgesic agent

== ENCOUNTER → 2025-02-10 | Outpatient (CLI) | payer OTHER ==
[~2025-02-10] MED LIST changes: +ZOLP-532 PO
== END ==
LOC: M CARPUL 15:20
PROVIDERS: ATTEND Student in an Organized Health Care Education/Training Program
DX: C81.90 Hodgkin lymphoma, unspecified, unspecified site (principal); Z79.69 Long term (current) use of other immunomodulators and immunosuppressants

== ENCOUNTER → 2025-03-30 | Outpatient (CLI) | payer OTHER ==
[~2025-03-30] MED LIST changes: -BACTDSTA PO; +SULF-8 PO
== END ==
LOC: M PLARAD 10:10
PROVIDERS: ATTEND Student in an Organized Health Care Education/Training Program
DX: C91.90 Lymphoid leukemia, unspecified not having achieved remission (principal)
CPT/HCPCS: 78815; A9552